=== PATIENT | female | born 1975 | race Caucasian/White ===

== ENCOUNTER → 2016-07-14 | Outpatient (CLI) | payer OTHER ==
[2016-07-14 12:55] LABS: ALBUMIN 3.8 GM/DL (3.2-5.2); ALBUMIN/GLOBULIN RATIO 0.76 (1.00-1.93); ALKALINE PHOSPHATASE 141 U/L (45-117); ALT/SGPT 28 U/L (12-78); ANION GAP 11 MEQ/L (8-16); AST/SGOT 30 U/L (15-37); BILIRUBIN,TOTAL 0.4 MG/DL (0.2-1.0); BLOOD UREA NITROGEN 11 MG/DL (7-18); CALCIUM LEVEL 9.6 MG/DL (8.5-10.1); CARBON DIOXIDE LEVEL 23 MEQ/L (21-32); CHLORIDE LEVEL 104 MEQ/L (98-107); CHOLESTEROL LEVEL 296 MG/DL (<200); CREATININE FOR GFR 0.89 MG/DL (0.55-1.02); GLOMERULAR FILTRATION RATE > 60.0 (>60); GLUCOSE, FASTING 81 MG/DL (70-105); POTASSIUM SERUM 4.4 MEQ/L (3.5-5.1); SODIUM LEVEL 138 MEQ/L (136-145); THYROXINE (T4) 12.2 UG/DL (4.5-12.0); TOTAL PROTEIN 8.8 GM/DL (6.4-8.2); TRIGLYCERIDES LEVEL 373 MG/DL (<150)
== END ==
LOC: M LAB 11:34
PROVIDERS: ATTEND Physician Assistant Medical
DX: E78.2 Mixed hyperlipidemia (principal)

== ENCOUNTER → 2016-09-06 | Outpatient (CLI) | payer OTHER ==
[2016-09-06 09:59] LABS: ALBUMIN 3.2 GM/DL (3.2-5.2); ALBUMIN/GLOBULIN RATIO 0.68 (1.00-1.93); ALKALINE PHOSPHATASE 181 U/L (45-117); ALT/SGPT 34 U/L (12-78); ANION GAP 10 MEQ/L (8-16); AST/SGOT 28 U/L (15-37); BILIRUBIN,TOTAL 0.2 MG/DL (0.2-1.0); BLOOD UREA NITROGEN 14 MG/DL (7-18); CALCIUM LEVEL 8.3 MG/DL (8.5-10.1); CARBON DIOXIDE LEVEL 26 MEQ/L (21-32); CHLORIDE LEVEL 104 MEQ/L (98-107); CHOLESTEROL LEVEL 157 MG/DL (<200); CREATININE FOR GFR 0.84 MG/DL (0.55-1.02); GLOMERULAR FILTRATION RATE > 60.0 (>58); GLUCOSE, FASTING 72 MG/DL (70-105); POTASSIUM SERUM 4.2 MEQ/L (3.5-5.1); SODIUM LEVEL 140 MEQ/L (136-145); TOTAL PROTEIN 7.9 GM/DL (6.4-8.2); TRIGLYCERIDES LEVEL 144 MG/DL (<150)
== END ==
LOC: M LAB 08:28
PROVIDERS: ATTEND Physician Assistant Medical
DX: E78.2 Mixed hyperlipidemia (principal); E03.9 Hypothyroidism, unspecified

== ENCOUNTER → 2016-10-07 | Outpatient (CLI) | payer OTHER ==
[~2016-10-07] MED LIST: ATOR40TA PO; LEVO125T3 PO; LISI-538 PO
--- NOTE | 2016-10-07 15:24 | ECGEPIP ---
Stationary ECG Study [facility] Test Date: 2016-10-07 Pat Name: ABRAHAM CADE Department: Room: - Gender: F Relocation Manager: CHERYL : 1975 Requested By: Eugene Frost Order Number: [id number] Reading MD: Manpreet Galan Measurements Intervals [place] Rate: 77 P: 55 CO: 153 QRS: 32 QRSD: 80 T: 71 QT: 371 QTc: 420 Interpretive Statements SINUS RHYTHM NONSPECIFIC ST & T-WAVE ABNORMALITY No prior ECG available for comparison at the time of interpretation. Electronically Signed On 10-07-2016 15:24:02 EDT by Manpreet Galan
== END ==
LOC: M EKG 08:17
PROVIDERS: ATTEND Anesthesiology
DX: Z01.818 Encounter for other preprocedural examination (principal)

== ENCOUNTER → 2016-10-11 | Outpatient (REF) | payer OTHER | LOC: M LAB REF 13:55 | PROVIDERS: ATTEND Obstetrics & Gynecology | DX: Z11.51 Encounter for screening for human papillomavirus (HPV) (principal) ==

== ENCOUNTER → 2016-10-25 | Outpatient (CLI) | payer OTHER ==
--- NOTE | 2016-10-25 10:19 | REPMRS ---
Patient History The patient states she has not had a clinical breast exam in over a year. Patient is nulliparous. Family history of endometrial cancer in mother at age 65, colorectal cancer in paternal aunt at age 50 or over, breast cancer in paternal cousin, and colorectal cancer in paternal uncle at age 50 or over. Taking unspecified hormones for 6 months. Digital Mammo Screening Bilat: October 25, 2016 - Exam #: [id number] Bilateral CC and MLO view(s) were taken. Technologist: Agustín Nunezologist FINDINGS: There are scattered fibroglandular densities. There is no evidence of cancer on this mammogram. ASSESSMENT: BI-RADS/ACR category 2 mammogram. Benign finding(s). Recommendation Routine screening mammogram of both breasts in 1 year (for women over age 40). This mammogram was interpreted with the aid of an FDA-approved computer-aided dectection system. Electronically Signed By: Christophe Mcfadden MD 10/25/16 [id number]
== END ==
LOC: M RAD 09:38
PROVIDERS: ATTEND Obstetrics & Gynecology
DX: Z12.31 Encounter for screening mammogram for malignant neoplasm of breast (principal)

== ENCOUNTER → 2016-12-06 | Outpatient (CLI) | payer OTHER ==
[2016-12-06 10:40] LABS: ALBUMIN 3.3 GM/DL (3.2-5.2); ALBUMIN/GLOBULIN RATIO 0.75 (1.00-1.93); ALKALINE PHOSPHATASE 118 U/L (45-117); ALT/SGPT 39 U/L (12-78); ANION GAP 6 MEQ/L (8-16); AST/SGOT 34 U/L (15-37); BILIRUBIN,TOTAL 0.3 MG/DL (0.2-1.0); BLOOD UREA NITROGEN 12 MG/DL (7-18); CALCIUM LEVEL 8.9 MG/DL (8.5-10.1); CARBON DIOXIDE LEVEL 25 MEQ/L (21-32); CHLORIDE LEVEL 109 MEQ/L (98-107); CHOLESTEROL LEVEL 220 MG/DL (<200); CREATININE FOR GFR 0.88 MG/DL (0.55-1.02); GLOMERULAR FILTRATION RATE > 60.0 (>58); GLUCOSE, FASTING 83 MG/DL (70-105); POTASSIUM SERUM 4.9 MEQ/L (3.5-5.1); SODIUM LEVEL 140 MEQ/L (136-145); TOTAL PROTEIN 7.7 GM/DL (6.4-8.2); TRIGLYCERIDES LEVEL 223 MG/DL (<150)
== END ==
LOC: M LAB 08:53
PROVIDERS: ATTEND Physician Assistant Medical
DX: E78.2 Mixed hyperlipidemia (principal); E03.9 Hypothyroidism, unspecified

== ENCOUNTER 2016-12-23 17:06 | Emergency (ER) | payer OTHER ==
[~2016-12-23] VITALS: Ht 165.1 cm; Wt 100.0 kg
[~2016-12-23 17:06] MED LIST changes: -ATOR40TA PO; +ATOR40TA75 PO; -LEVO125T3 PO; +LEVO125T4 PO
[2016-12-23 17:07] VITALS: BP 137/83
[2016-12-23] MEDS ORDERED: ADVI200T PO (17:16)
[2016-12-23] MEDS ORDERED: ANUS25SU PR (17:36)
[2016-12-23] MEDS ORDERED: NORCO, ANEXSIA 5/325MG TABLET (HYDROcodone/ACETAMINOPHEN) PO ONE (17:45)
== END 2016-12-23 17:41 | disposition home or self-care (01) ==
LOC: M ED 17:37
DX: K64.5 Perianal venous thrombosis (principal); R11.0 Nausea; K50.919 Crohn's disease, unspecified, with unspecified complications; I10 Essential (primary) hypertension; E78.00 Pure hypercholesterolemia, unspecified; D64.9 Anemia, unspecified; F41.9 Anxiety disorder, unspecified; F17.200 Nicotine dependence, unspecified, uncomplicated; Z90.49 Acquired absence of other specified parts of digestive tract; Z79.899 Other long term (current) drug therapy

== ENCOUNTER → 2017-01-07 | Day surgery (SDC) | payer OTHER ==
[~2017-01-07] VITALS: Ht 165.1 cm; Wt 99.8 kg
[~2017-01-07] MED LIST changes: +ADVI200T PO; +ANUS25SU PR; +HYDROmorphone HCL 1 MG/ML SYRINGE (J1170) IV PRN; +KETOROLAC 60 MG/2 ML VIAL (J1885) As Ordered ONE; +LIDOCAINE 1% SDV INJ 30 ML VIAL As Ordered ONE; +LIDOCAINE 2% INJ 100 MG/5 ML SDV (FOR ANES.) As Ordered ONE; +LR 1,000 ML IV SCH; +MIDAZOLAM INJ 2 MG/2 ML VIAL (J2250) As Ordered ONE; +ONDANSETRON 4MG/2ML VIAL (J2405) As Ordered ONE; +ONDANSETRON 4MG/2ML VIAL (J2405) IV PRN; +PERCOCET 5MG/325MG TAB PO PRN; +PROPOFOL 200 MG/20 ML VIAL As Ordered ONE; +SILVER NITRATE APPLICATOR As Ordered ONE; +dexameTHASONE 4 MG/ML 1ML VIAL (J1100) As Ordered ONE; +ePHEDrine SULFATE 25 MG/5 ML(5MG/ML) SYRINGE As Ordered ONE; +fentaNYL 100 MCG/2 ML INJECTION (J3010) As Ordered ONE; +fentaNYL 100 MCG/2 ML INJECTION (J3010) IV PRN
[2017-01-07 06:40] LABS: MEAN CORPUSCULAR HEMOGLOBIN 28.2 pg (27.0-33.0); MEAN CORPUSCULAR HGB CONC 33.3 g/dl (32.0-36.5); MEAN CORPUSCULAR VOLUME 84.5 fl (80.0-96.0); RED CELL DISTRIBUTION WIDTH 13.2 % (11.5-14.5); WHITE BLOOD COUNT 7.1 K/mm3 (4.0-10.0)
[2017-01-07 07:21] LABS: CONTROL LINE HCG INT CTR LINE PRESENT
[2017-01-07 10:25] VITALS: BP 131/76
--- NOTE | 2017-01-08 12:04 | RO ---
DATE OF PROCEDURE: 01/07/2017 PREOPERATIVE DIAGNOSES: 1. Abnormal uterine bleeding. 2. Possible fistulous tract to the vagina, cervix, and uterus. POSTOPERATIVE DIAGNOSES: 1. Abnormal uterine bleeding. 2. Possible fistulous tract to the vagina, cervix, and uterus. 3. Favor [id number] over fistulous tract to vagina, cervix, or uterus. 4. External hemorrhoid, thrombosed. PROCEDURES PERFORMED: 1. Examination under anesthesia. 2. Diagnostic hysteroscopy and dilation and curettage. 3. Insertion of Mirena intrauterine device (IUD). SURGEON: Jayy Andre DO MACHINE BRUSH MAKER: KERON Lawson-JACKIE ANESTHESIA TYPE: General via laryngeal mask airway (LMA) anesthesia. SPECIMEN SENT TO PATHOLOGY: Endometrial curettings. ESTIMATED BLOOD LOSS: Less than 10 mL. FLUIDS REPLACED: 1 liter of lactated Ringer. DRAINS: In-and-out catheter 50 mL urine output. COMPLICATIONS: None. PREOPERATIVE ANTIBIOTICS: None indicated. INTRAOPERATIVE FINDINGS: Examination under anesthesia revealed no evidence of a fistulous tract to the vagina, uterus, or cervix. Hysteroscopic findings: No evidence of fistulous tracts within the cervix or the uterus. The hysteroscopic examination revealed a normal intrauterine cavity. Bilateral ostia visualized with no intracavitary mass. No indentation of the contour of the inside of the endometrial cavity that would be suggestive of a fistulous tract within either the endometrial cavity or the endocervical cavity. ADDITIONAL FINDINGS: Right buttock pinpoint opening with mucoid drainage. No blood drainage. There was a thrombosed hemorrhoid at 7 o'clock. INDICATION: The patient is a 41-year-old with a longstanding history of abnormal uterine bleeding and a fistulous tract that drains from her right buttocks. The patient had endorsed bleeding from this area, and typically she notes this bleeding at the time of her menses. However, no fistulous tract has been able to be delineated. DESCRIPTION OF PROCEDURE: The patient was counseled and consented on the risks, benefits, indications, and alternatives if the procedure. Informed consent was obtained. She was taken to the operating room with an intravenous (IV) running and placed on the operating table in the dorsal supine position. General anesthesia was administered and the airway secured without any difficulty. She was placed in the low lithotomy position. She was prepared and draped in normal sterile fashion. Time-out was performed per protocol. The bladder was drained with a sterile in-and-out catheter. A sterile speculum was placed with good visualization of the cervix. A single-tooth tenaculum was used to grasp the anterior lip of the cervix, and downward traction was applied. The cervix was noted to be stenotic and difficult to access with just the smallest Rodri dilator. Therefore, a lacrimal duct probe was used to delineate the pinpoint stenotic cervical os. This was done successfully. Entry into the intrauterine cavity was achieved with the lacrimal duct probe. This lacrimal duct probe was removed. A small slit within the cervical os was created with the #11 blade to accommodate the Rodri dilator. The Rodri dilator was placed transcervically into the intrauterine cavity, and then the cervix was then sequentially dilated with Rodri dilators up to a #17. A light curettage was performed throughout the entire intrauterine cavity. A small amount of tissue was removed. The hysteroscope was placed transcervically into the intrauterine cavity with the findings noted above. Given lack of any significant findings within the endometrial cavity or the endocervical canal, in particular no evidence of a fistulous tract, the decision was made to conclude the diagnostic hysteroscopy. The hysteroscope was removed. The uterus was sounded to 7 cm. The uterus was allowed to drain all of the hysteroscopic normal saline fluid. The Mirena IUD was placed under finish molder guidelines. The IUD strings were cut approximately 2 cm from the external os. Minimal bleeding from the uterus/cervical os was noted. The single-tooth tenaculum was removed. The tenaculum sites were cauterized with silver nitrate. An additional examination of the vaginal mucosa revealed no evidence of the fistulous tract. The drainage that was elicited from the right buttocks opening was only mucoid in nature, and no watery fluid or blood was noted from this fistulous tract, thus providing more evidence that there is not a fistulous tract communicating to the vagina or the cervix or uterus, by my best effort and examination. Sponge, lap, needle, and instrument counts were correct. The patient tolerated the entire procedure very well. She was transferred to the postanesthesia care unit (PACU) in good and stable condition. [facility]
== END | disposition home or self-care (01) ==
LOC: M SDC 06:06
PROVIDERS: ATTEND Obstetrics & Gynecology
DX: N93.9 Abnormal uterine and vaginal bleeding, unspecified (principal); K64.9 Unspecified hemorrhoids; E03.9 Hypothyroidism, unspecified; I10 Essential (primary) hypertension; K50.90 Crohn's disease, unspecified, without complications; E78.00 Pure hypercholesterolemia, unspecified; R29.898 Other symptoms and signs involving the musculoskeletal system; Z88.8 Allergy status to other drugs, medicaments and biological substances; Z79.899 Other long term (current) drug therapy; Z86.2 Personal history of diseases of the blood and blood-forming organs and certain disorders involving the immune mechanism; Z90.49 Acquired absence of other specified parts of digestive tract

== ENCOUNTER → 2017-03-07 | Outpatient (CLI) | payer OTHER ==
[~2017-03-07] MED LIST changes: -HYDROmorphone HCL 1 MG/ML SYRINGE (J1170) IV PRN; -KETOROLAC 60 MG/2 ML VIAL (J1885) As Ordered ONE; -LIDOCAINE 1% SDV INJ 30 ML VIAL As Ordered ONE; -LIDOCAINE 2% INJ 100 MG/5 ML SDV (FOR ANES.) As Ordered ONE; -LR 1,000 ML IV SCH; -MIDAZOLAM INJ 2 MG/2 ML VIAL (J2250) As Ordered ONE; -ONDANSETRON 4MG/2ML VIAL (J2405) As Ordered ONE; -ONDANSETRON 4MG/2ML VIAL (J2405) IV PRN; -PERCOCET 5MG/325MG TAB PO PRN; -PROPOFOL 200 MG/20 ML VIAL As Ordered ONE; -SILVER NITRATE APPLICATOR As Ordered ONE; -dexameTHASONE 4 MG/ML 1ML VIAL (J1100) As Ordered ONE; -ePHEDrine SULFATE 25 MG/5 ML(5MG/ML) SYRINGE As Ordered ONE; -fentaNYL 100 MCG/2 ML INJECTION (J3010) As Ordered ONE; -fentaNYL 100 MCG/2 ML INJECTION (J3010) IV PRN
[2017-03-07 08:54] LABS: ALBUMIN/GLOBULIN RATIO 0.61 (1.00-1.93); ALKALINE PHOSPHATASE 95 U/L (45-117); ALT/SGPT 21 U/L (12-78); ANION GAP 24 MEQ/L (8-16); AST/SGOT 19 U/L (15-37); BILIRUBIN,TOTAL 0.3 MG/DL (0.2-1.0); BLOOD UREA NITROGEN 13 MG/DL (7-18); CALCIUM LEVEL 8.6 MG/DL (8.5-10.1); CARBON DIOXIDE LEVEL 2 MEQ/L (21-32); CHLORIDE LEVEL 110 MEQ/L (98-107); CHOLESTEROL LEVEL 185 MG/DL (<200); CREATININE FOR GFR 0.76 MG/DL (0.55-1.02); GLOMERULAR FILTRATION RATE > 60.0 (>58); GLUCOSE, FASTING 86 MG/DL (70-105); POTASSIUM SERUM 4.7 MEQ/L (3.5-5.1); SODIUM LEVEL 136 MEQ/L (136-145); TOTAL PROTEIN 7.9 GM/DL (6.4-8.2); TRIGLYCERIDES LEVEL 58 MG/DL (<150)
== END ==
LOC: M LAB 06:15
PROVIDERS: ATTEND Physician Assistant Medical
DX: E78.2 Mixed hyperlipidemia (principal)

== ENCOUNTER → 2017-03-16 | Outpatient (CLI) | payer OTHER ==
[2017-03-16 07:21] LABS: BASO % 0.5 % (0.0-1.0); EOS # 0.4 K/mm3 (0.0-0.50); EOS % 5.9 % (0.0-3.0); LYMPH # 1.9 K/mm3 (1.5-4.5); LYMPH % 23.5 % (24.0-44.0); MEAN CORPUSCULAR HEMOGLOBIN 27.6 pg (27.0-33.0); MEAN CORPUSCULAR HGB CONC 31.4 g/dl (32.0-36.5); MEAN CORPUSCULAR VOLUME 87.7 fl (80.0-96.0); MONO # 0.3 K/mm3 (0.0-0.8); MONO % 4.5 % (0.0-5.0); NEUTROPHILS # 4.7 K/mm3 (1.8-7.7); NEUTROPHILS % 63.6 % (36.0-66.0); RED CELL DISTRIBUTION WIDTH 13.4 % (11.5-14.5); WHITE BLOOD COUNT 7.4 K/mm3 (4.0-10.0)
== END ==
LOC: M LAB 06:36
PROVIDERS: ATTEND Physician Assistant Medical
DX: R42 Dizziness and giddiness (principal)

== ENCOUNTER → 2017-05-16 | Outpatient (CLI) | payer OTHER ==
[2017-05-16 06:56] LABS: BASO # 0.1 10^3/uL (0.0-0.2); BASO % 0.5 % (0.0-1.0); EOS # 0.3 10^3/uL (0.0-0.50); EOS % 3.1 % (0.0-3.0); IMMATURE GRANULOCYTE % 0.5 % (0-0); LYMPH # 2.1 10^3/uL (1.5-4.5); LYMPH % 19.9 % (24.0-44.0); MEAN CORPUSCULAR HEMOGLOBIN 27.5 pg (27.0-33.0); MEAN CORPUSCULAR HGB CONC 32.3 g/dl (32.0-36.5); MEAN CORPUSCULAR VOLUME 85.1 fl (80.0-96.0); MONO # 0.7 10^3/uL (0.0-0.8); MONO % 6.8 % (0.0-5.0); NEUTROPHILS # 7.5 10^3/uL (1.8-7.7); NEUTROPHILS % 69.2 % (36.0-66.0); PLATELET COUNT, AUTOMATED 341 10^3/uL (150-450); RED CELL DISTRIBUTION WIDTH 13.5 % (11.5-14.5); WHITE BLOOD COUNT 10.8 10^3/uL (4.0-10.0)
[2017-05-16 07:32] LABS: ALBUMIN 3.1 GM/DL (3.2-5.2); ALBUMIN/GLOBULIN RATIO 0.74 (1.00-1.93); ALKALINE PHOSPHATASE 103 U/L (45-117); ALT/SGPT 22 U/L (12-78); ANION GAP 9 MEQ/L (8-16); AST/SGOT 18 U/L (7-37); BILIRUBIN,TOTAL 0.3 MG/DL (0.2-1.0); BLOOD UREA NITROGEN 14 MG/DL (7-18); CALCIUM LEVEL 8.8 MG/DL (8.5-10.1); CARBON DIOXIDE LEVEL 24 MEQ/L (21-32); CHLORIDE LEVEL 106 MEQ/L (98-107); CHOLESTEROL LEVEL 237 MG/DL (<200); CREATININE FOR GFR 0.98 MG/DL (0.55-1.02); FERRITIN 18 NG/ML (8-252); GLOMERULAR FILTRATION RATE > 60.0 (>58); GLUCOSE, FASTING 73 MG/DL (70-105); POTASSIUM SERUM 3.8 MEQ/L (3.5-5.1); SODIUM LEVEL 139 MEQ/L (136-145); T UPTAKE 33 % (30-39); THYROXINE (T4) 10.4 UG/DL (4.5-12.0); TOTAL PROTEIN 7.3 GM/DL (6.4-8.2); TRIGLYCERIDES LEVEL 163 MG/DL (<150)
== END ==
LOC: M LAB 06:18
PROVIDERS: ATTEND Physician Assistant Medical
DX: E03.9 Hypothyroidism, unspecified (principal); E55.9 Vitamin D deficiency, unspecified; D64.9 Anemia, unspecified; E78.2 Mixed hyperlipidemia

== ENCOUNTER → 2017-05-16 | Outpatient (CLI) | payer OTHER | LOC: M LAB 06:15 | PROVIDERS: ATTEND Internal Medicine Gastroenterology | DX: K51.20 Ulcerative (chronic) proctitis without complications (principal); K64.0 First degree hemorrhoids ==

== ENCOUNTER → 2017-06-10 | Outpatient (CLI) | payer OTHER ==
--- NOTE | 2017-06-14 09:21 | SLEEPHOME ---
DATE OF STUDY: 06/10/2017 ORDERING PROVIDER: Ashley Jimenze NP Diagnostic home sleep testing was performed due to concern for the obstructive sleep apnea syndrome in this patient with a history of excessive somnolence and hypertension and comorbidities of hypothyroidism. 10 hours and 59 minutes of data were reviewed. There were 10 hour and 22 minutes marked as time in bed. During the interval marked time in bed, there were 37 respiratory events identified of 10 seconds in duration or greater for a respiratory event index of 3.6. The events were primarily obstructive and exclusively seen in the supine posture. Baseline pulse rate 70 beats per minute. Pulse rate ranged 60-108. Baseline saturation 95%. The lowest oxygen saturation recorded was 77%. Testing was performed primarily in the supine posture. Nonsupine data was reviewed, as well. IMPRESSION: Borderline diagnostic home sleep testing with repetitive respiratory events and oxygen desaturations into the 70s with an apnea-hypopnea index of 3.6. RECOMMENDATION: As the events were exclusive to the supine position, sleep position retraining for avoidance of the supine posture is recommended. If the patient's symptoms persist, retesting ideally in an inpatient setting would be more sensitive to identify mild obstructive sleep apnea syndrome.
== END ==
LOC: M SLEEP 13:09
PROVIDERS: ATTEND Nurse Practitioner Adult Health
DX: G47.30 Sleep apnea, unspecified (principal)

== ENCOUNTER → 2017-07-04 | Outpatient (CLI) | payer OTHER ==
[2017-07-04 12:32] LABS: BASO % 0.6 % (0.0-1.0); EOS # 0.3 10^3/uL (0.0-0.50); EOS % 4.2 % (0.0-3.0); HEMATOCRIT 37.2 % (36.0-47.0); HEMOGLOBIN 12.2 g/dl (12.0-16.0); IMMATURE GRANULOCYTE % 0.3 % (0-0); LYMPH # 1.5 10^3/uL (1.5-4.5); LYMPH % 23.1 % (24.0-44.0); MEAN CORPUSCULAR HEMOGLOBIN 26.5 pg (27.0-33.0); MEAN CORPUSCULAR HGB CONC 32.8 g/dl (32.0-36.5); MEAN CORPUSCULAR VOLUME 80.9 fl (80.0-96.0); MONO # 0.4 10^3/uL (0.0-0.8); MONO % 5.9 % (0.0-5.0); NEUTROPHILS # 4.3 10^3/uL (1.8-7.7); NEUTROPHILS % 65.9 % (36.0-66.0); PLATELET COUNT, AUTOMATED 342 10^3/uL (150-450); RED CELL DISTRIBUTION WIDTH 13.4 % (11.5-14.5); WHITE BLOOD COUNT 6.5 10^3/uL (4.0-10.0)
[2017-07-04 13:04] LABS: TOTAL 25(OH) VITAMIN D 27.3 NG/ML (30.0-100.0)
[2017-07-04 13:05] LABS: ALBUMIN 3.3 GM/DL (3.2-5.2); ALBUMIN/GLOBULIN RATIO 0.75 (1.00-1.93); ALKALINE PHOSPHATASE 108 U/L (45-117); ALT/SGPT 21 U/L (12-78); ANION GAP 10 MEQ/L (8-16); AST/SGOT 22 U/L (7-37); BILIRUBIN,TOTAL 0.4 MG/DL (0.2-1.0); BLOOD UREA NITROGEN 15 MG/DL (7-18); CALCIUM LEVEL 8.3 MG/DL (8.5-10.1); CARBON DIOXIDE LEVEL 23 MEQ/L (21-32); CHLORIDE LEVEL 107 MEQ/L (98-107); CHOLESTEROL LEVEL 232 MG/DL (<200); CHOLESTEROL RISK RATIO 5.155 (<5); CREATININE FOR GFR 0.85 MG/DL (0.55-1.02); FREE THYROXINE INDEX 2.7 % (1.3-4.8); GLOMERULAR FILTRATION RATE > 60.0 (>58); GLUCOSE, FASTING 86 MG/DL (70-105); HDL CHOLESTEROL 45 MG/DL (>40); LDL CHOLESTEROL 145.8 MG/DL (<100); NON-HDL-C 187 MG/DL; POTASSIUM SERUM 4.3 MEQ/L (3.5-5.1); SODIUM LEVEL 140 MEQ/L (136-145); T UPTAKE 30 % (30-39); TOTAL PROTEIN 7.7 GM/DL (6.4-8.2); TRIGLYCERIDES LEVEL 206 MG/DL (<150)
== END ==
LOC: M LAB 11:51
DX: E78.2 Mixed hyperlipidemia (principal); E55.9 Vitamin D deficiency, unspecified; E03.9 Hypothyroidism, unspecified
CPT/HCPCS: 84443

== ENCOUNTER → 2017-08-16 | Outpatient (CLI) | payer OTHER ==
[2017-08-16 11:45] LABS: BASO % 0.4 % (0.0-1.0); EOS # 0.3 10^3/uL (0.0-0.50); EOS % 3.6 % (0.0-3.0); HEMATOCRIT 39.6 % (36.0-47.0); HEMOGLOBIN 12.8 g/dl (12.0-16.0); IMMATURE GRANULOCYTE % 0.4 % (0-3.0); LYMPH # 2.3 10^3/uL (1.5-4.5); LYMPH % 25.1 % (24.0-44.0); MEAN CORPUSCULAR HEMOGLOBIN 26.2 pg (27.0-33.0); MEAN CORPUSCULAR HGB CONC 32.3 g/dl (32.0-36.5); MEAN CORPUSCULAR VOLUME 81.1 fl (80.0-96.0); MONO # 0.6 10^3/uL (0.0-0.8); MONO % 6.3 % (0.0-5.0); NEUTROPHILS # 5.8 10^3/uL (1.8-7.7); NEUTROPHILS % 64.2 % (36.0-66.0); PLATELET COUNT, AUTOMATED 417 10^3/uL (150-450); RED BLOOD COUNT 4.88 10^6/uL (4.00-5.40); RED CELL DISTRIBUTION WIDTH 13.7 % (11.5-14.5); WHITE BLOOD COUNT 9.1 10^3/uL (4.0-10.0)
[2017-08-16 12:58] LABS: ALBUMIN 3.8 GM/DL (3.2-5.2); ALBUMIN/GLOBULIN RATIO 0.73 (1.00-1.93); ALKALINE PHOSPHATASE 199 U/L (45-117); ALT/SGPT 36 U/L (12-78); ANION GAP 12 MEQ/L (8-16); AST/SGOT 27 U/L (7-37); BILIRUBIN,TOTAL 0.5 MG/DL (0.2-1.0); BLOOD UREA NITROGEN 12 MG/DL (7-18); CALCIUM LEVEL 9.9 MG/DL (8.5-10.1); CARBON DIOXIDE LEVEL 22 MEQ/L (21-32); CHLORIDE LEVEL 104 MEQ/L (98-107); CHOLESTEROL LEVEL 148 MG/DL (<200); CHOLESTEROL RISK RATIO 3.217 (<5); GLOMERULAR FILTRATION RATE > 60.0 (>58); GLUCOSE, FASTING 82 MG/DL (70-100); HDL CHOLESTEROL 46 MG/DL (>40); NON-HDL-C 102 MG/DL; POTASSIUM SERUM 4.5 MEQ/L (3.5-5.1); SODIUM LEVEL 138 MEQ/L (136-145); T UPTAKE 28 % (30-39); THYROXINE (T4) 15.5 UG/DL (4.5-12.0); TRIGLYCERIDES LEVEL 165 MG/DL (<150)
[2017-08-16 13:03] LABS: TOTAL 25(OH) VITAMIN D 23.7 NG/ML (30.0-100.0)
== END ==
LOC: M LAB 11:14
DX: E78.2 Mixed hyperlipidemia (principal)
CPT/HCPCS: 84443

== ENCOUNTER 2017-08-27 15:00 | Emergency (ER) | payer OTHER ==
[2017-08-27] MEDS: AUGMENTIN 875 MG TAB PO (16:42)
[2017-08-27] MEDS: LIDOCAINE 2% W/EPIN INJ 20ML **PRES FREE INJ (16:42)
[2017-08-27] MEDS: ADACEL/BOOSTRIX VACCINE (DIPHTH/PERTUSS/ACELL/TETANUS)0.5ML SYR (90715) IM (16:44)
== END 2017-08-27 17:16 | disposition home or self-care (01) ==
LOC: M ED 15:00
DX: S51.812A Laceration without foreign body of left forearm, initial encounter (principal); S40.022A Contusion of left upper arm, initial encounter; W54.0XXA Bitten by dog, initial encounter; Y92.018 Other place in single-family (private) house as the place of occurrence of the external cause; I10 Essential (primary) hypertension; K50.90 Crohn's disease, unspecified, without complications; E07.9 Disorder of thyroid, unspecified; E78.9 Disorder of lipoprotein metabolism, unspecified; Z79.899 Other long term (current) drug therapy; Z79.890 Hormone replacement therapy; Z88.8 Allergy status to other drugs, medicaments and biological substances; Z87.891 Personal history of nicotine dependence
CPT/HCPCS: 90715

== ENCOUNTER 2017-12-02 18:54 | Emergency (ER) | payer OTHER ==
[2017-12-02] MEDS ORDERED: NS 1,000 ML IV (19:45)
[2017-12-02 21:16] LABS: BASO # 0.1 10^3/uL (0.0-0.2); BASO % 0.5 % (0.0-1.0); EOS # 0.3 10^3/uL (0.0-0.50); EOS % 2.7 % (0.0-3.0); HEMOGLOBIN 13.1 g/dl (12.0-15.5); IMMATURE GRANULOCYTE % 0.4 % (0-3.0); LYMPH # 2.5 10^3/uL (1.5-4.5); LYMPH % 20.4 % (24.0-44.0); MEAN CORPUSCULAR HEMOGLOBIN 28.7 pg (27.0-33.0); MEAN CORPUSCULAR HGB CONC 33.6 g/dl (32.0-36.5); MEAN CORPUSCULAR VOLUME 85.5 fl (80.0-96.0); MONO # 0.7 10^3/uL (0.0-0.8); MONO % 5.8 % (0.0-5.0); NEUTROPHILS # 8.5 10^3/uL (1.8-7.7); NEUTROPHILS % 70.2 % (36.0-66.0); PLATELET COUNT, AUTOMATED 345 10^3/uL (150-450); RED BLOOD COUNT 4.56 10^6/uL (4.00-5.40); RED CELL DISTRIBUTION WIDTH 14.3 % (11.5-14.5); WHITE BLOOD COUNT 12.1 10^3/uL (4.0-10.0)
[2017-12-02 21:41] LABS: ALBUMIN 3.3 GM/DL (3.2-5.2); ALBUMIN/GLOBULIN RATIO 0.77 (1.00-1.93); ALKALINE PHOSPHATASE 125 U/L (45-117); ANION GAP 6 MEQ/L (8-16); AST/SGOT 17 U/L (7-37); BILIRUBIN,DIRECT < 0.1 MG/DL (0.0-0.2); BILIRUBIN,TOTAL 0.3 MG/DL (0.2-1.0); BLOOD UREA NITROGEN 11 MG/DL (7-18); C REACTIVE PROTEIN QUANTITATIV 1.48 MG/DL (0.00-0.30); CALCIUM LEVEL 8.5 MG/DL (8.5-10.1); CARBON DIOXIDE LEVEL 25 MEQ/L (21-32); CHLORIDE LEVEL 110 MEQ/L (98-107); CPK CREATINE PHOSPHOKINASE 43 U/L (26-192); CREATININE FOR GFR 0.85 MG/DL (0.55-1.30); FREE T4 0.93 NG/DL (0.76-1.46); GLOMERULAR FILTRATION RATE > 60.0 (>58); GLUCOSE, FASTING 82 MG/DL (70-100); POTASSIUM SERUM 4.5 MEQ/L (3.5-5.1); SODIUM LEVEL 141 MEQ/L (136-145); TOTAL PROTEIN 7.6 GM/DL (6.4-8.2); TROPONIN I < 0.02 NG/ML (< 0.10)
[2017-12-02 21:46] LABS: ALT/SGPT 27 U/L (12-78); CK-MB VALUE MASS < 1.0 NG/ML (<3.6); MB/CK RELATIVE INDEX 2.32 (< OR =4); NT-PRO BNP 108 PG/ML (<125)
[2017-12-02 22:11] LABS: INR 0.97
[2017-12-02 22:12] LABS: PARTIAL THROMBOPLASTIN TIME 28.2 SECONDS (26.8-37.9)
[2017-12-06 11:17] LABS: BEDSIDE GLUCOSE 97 MG/DL (70-105)
== END 2017-12-02 22:33 | disposition home or self-care (01) ==
LOC: M ED 18:54
DX: R42 Dizziness and giddiness (principal); M79.89 Other specified soft tissue disorders; E07.9 Disorder of thyroid, unspecified; I10 Essential (primary) hypertension; E78.9 Disorder of lipoprotein metabolism, unspecified; D64.9 Anemia, unspecified; K50.90 Crohn's disease, unspecified, without complications; Z88.8 Allergy status to other drugs, medicaments and biological substances; Z79.899 Other long term (current) drug therapy
CPT/HCPCS: 93970

== ENCOUNTER → 2018-01-30 | Outpatient (REF) | payer OTHER ==
[2018-02-01 14:17] LABS: HPV HYBRID CAPTURE II Negative (Negative)
== END ==
LOC: M LAB REF 13:17
DX: Z12.4 Encounter for screening for malignant neoplasm of cervix (principal)

== ENCOUNTER → 2018-02-08 | Outpatient (CLI) | payer OTHER ==
[2018-02-09 14:17] LABS: ANTINUCLEAR ANTIBODIES DIRECT Negative (Negative)
== END ==
LOC: M LAB 06:02
DX: K50.113 Crohn's disease of large intestine with fistula (principal)
CPT/HCPCS: 36415

== ENCOUNTER → 2018-03-17 | Outpatient (CLI) | payer OTHER ==
[2018-03-17 20:02] LABS: BASO % 0.4 % (0.0-1.0); EOS # 0.3 10^3/uL (0.0-0.50); EOS % 3.2 % (0.0-3.0); HEMATOCRIT 37.8 % (36.0-47.0); HEMOGLOBIN 12.5 g/dl (12.0-15.5); IMMATURE GRANULOCYTE # 0.1 10^3/uL (0-0); IMMATURE GRANULOCYTE % 0.5 % (0-3.0); LYMPH # 2.4 10^3/uL (1.5-4.5); LYMPH % 24.6 % (24.0-44.0); MEAN CORPUSCULAR HEMOGLOBIN 30.6 pg (27.0-33.0); MEAN CORPUSCULAR HGB CONC 33.1 g/dl (32.0-36.5); MEAN CORPUSCULAR VOLUME 92.4 fl (80.0-96.0); MONO # 0.5 10^3/uL (0.0-0.8); MONO % 5.1 % (0.0-5.0); NEUTROPHILS # 6.3 10^3/uL (1.8-7.7); NEUTROPHILS % 66.2 % (36.0-66.0); PLATELET COUNT, AUTOMATED 205 10^3/uL (150-450); RED BLOOD COUNT 4.09 10^6/uL (4.00-5.40); RED CELL DISTRIBUTION WIDTH 12.8 % (11.5-14.5); WHITE BLOOD COUNT 9.6 10^3/uL (4.0-10.0)
[2018-03-17 20:05] LABS: AMORPHOUS SEDIMENT SMALL (NEGATIVE); APPEARANCE, URINE HAZY (CLEAR); BACTERIA, URINE AUTO NEGATIVE (NEGATIVE); BILIRUBIN, URINE AUTO NEGATIVE (NEGATIVE); BLOOD, URINE BLOOD NEGATIVE (NEGATIVE); COLOR, URINE STRAW (YELLOW); GLUCOSE, URINE (UA) AUTO NEGATIVE (NEGATIVE); KETONE, URINE AUTO NEGATIVE (NEGATIVE); LEUKOCYTE ESTERASE, URINE AUTO 1+ (NEGATIVE); NITRITE, URINE AUTO NEGATIVE (NEGATIVE); PROTEIN, URINE AUTO NEGATIVE (NEGATIVE); RBC, URINE AUTO 2 /HPF (0-3); SPECIFIC GRAVITY URINE AUTO 1.003 (1.002-1.035); SQUAMOUS EPITHELIAL CELL UR AU 4 /HPF (0-6); UROBILINOGEN, URINE AUTO 0.2 mg/dL (0.0-2.0); WBC, URINE AUTO 1 /HPF (0-3)
[2018-03-17 20:51] LABS: POS COUNT POS FLAG
[2018-03-17 20:53] LABS: ANION GAP 8 MEQ/L (8-16); BLOOD UREA NITROGEN 9 MG/DL (7-18); CALCIUM LEVEL 8.6 MG/DL (8.5-10.1); CARBON DIOXIDE LEVEL 24 MEQ/L (21-32); CHLORIDE LEVEL 103 MEQ/L (98-107); FREE T4 0.99 NG/DL (0.76-1.46); GLOMERULAR FILTRATION RATE > 60.0 (>58); GLUCOSE, FASTING 117 MG/DL (70-100); SODIUM LEVEL 135 MEQ/L (136-145); THYROID PEROXIDASE ANTIBODY 367.4 U/ML (<60.0)
== END ==
LOC: M LAB 16:24
DX: E03.9 Hypothyroidism, unspecified (principal); D64.9 Anemia, unspecified; E78.5 Hyperlipidemia, unspecified
CPT/HCPCS: 84443

== ENCOUNTER → 2018-03-24 | Outpatient (CLI) | payer OTHER ==
[2018-03-24 11:04] LABS: BASO % 0.4 % (0.0-1.0); EOS # 0.3 10^3/uL (0.0-0.50); EOS % 3.2 % (0.0-3.0); HEMOGLOBIN 13.3 g/dl (12.0-15.5); IMMATURE GRANULOCYTE % 0.4 % (0-3.0); LYMPH # 1.8 10^3/uL (1.5-4.5); LYMPH % 18.6 % (24.0-44.0); MEAN CORPUSCULAR HEMOGLOBIN 30.7 pg (27.0-33.0); MEAN CORPUSCULAR HGB CONC 34.1 g/dl (32.0-36.5); MEAN CORPUSCULAR VOLUME 90.1 fl (80.0-96.0); MONO # 0.6 10^3/uL (0.0-0.8); MONO % 5.8 % (0.0-5.0); NEUTROPHILS # 6.9 10^3/uL (1.8-7.7); NEUTROPHILS % 71.6 % (36.0-66.0); PLATELET COUNT, AUTOMATED 326 10^3/uL (150-450); RED BLOOD COUNT 4.33 10^6/uL (4.00-5.40); RED CELL DISTRIBUTION WIDTH 12.3 % (11.5-14.5); WHITE BLOOD COUNT 9.7 10^3/uL (4.0-10.0)
[2018-03-24 11:34] LABS: ERYTHROCYTE SEDIMENTATION RATE 28 mm/hr (0-20)
[2018-03-24 11:44] LABS: C REACTIVE PROTEIN QUANTITATIV 1.06 MG/DL (0.00-0.30); FREE T4 1.03 NG/DL (0.76-1.46); RHEUMATOID FACTOR QUANT < 10.0 IU/ML (<15.0)
[2018-03-25 15:36] LABS: ANTINUCLEAR ANTIBODIES DIRECT Negative (Negative)
== END ==
LOC: M LAB 10:06
DX: E06.3 Autoimmune thyroiditis (principal)
CPT/HCPCS: 84443

== ENCOUNTER → 2018-03-27 | Outpatient (CLI) | payer OTHER | LOC: M RAD 17:32 | DX: Z12.31 Encounter for screening mammogram for malignant neoplasm of breast (principal) | CPT/HCPCS: 77067 ==

== ENCOUNTER → 2018-03-30 | Outpatient (CLI) | payer OTHER | LOC: M RAD 17:31 | DX: E06.3 Autoimmune thyroiditis (principal) | CPT/HCPCS: 76536 ==

== ENCOUNTER → 2018-04-10 | Outpatient (CLI) | payer OTHER ==
[2018-04-10 16:08] LABS: BASO % 0.4 % (0.0-1.0); EOS # 0.3 10^3/uL (0.0-0.50); EOS % 3.2 % (0.0-3.0); HEMATOCRIT 39.1 % (36.0-47.0); HEMOGLOBIN 13.1 g/dl (12.0-15.5); IMMATURE GRANULOCYTE % 0.3 % (0-3.0); LYMPH % 20.6 % (24.0-44.0); MEAN CORPUSCULAR HEMOGLOBIN 30.3 pg (27.0-33.0); MEAN CORPUSCULAR HGB CONC 33.5 g/dl (32.0-36.5); MEAN CORPUSCULAR VOLUME 90.5 fl (80.0-96.0); MONO # 0.4 10^3/uL (0.0-0.8); MONO % 4.5 % (0.0-5.0); NEUTROPHILS # 6.9 10^3/uL (1.8-7.7); PLATELET COUNT, AUTOMATED 324 10^3/uL (150-450); RED BLOOD COUNT 4.32 10^6/uL (4.00-5.40); RED CELL DISTRIBUTION WIDTH 12.4 % (11.5-14.5); WHITE BLOOD COUNT 9.7 10^3/uL (4.0-10.0)
[2018-04-10 16:42] LABS: ANION GAP 9 MEQ/L (8-16); BLOOD UREA NITROGEN 12 MG/DL (7-18); CALCIUM LEVEL 8.7 MG/DL (8.5-10.1); CARBON DIOXIDE LEVEL 25 MEQ/L (21-32); CHLORIDE LEVEL 104 MEQ/L (98-107); CREATININE FOR GFR 0.86 MG/DL (0.55-1.30); FREE T4 1.19 NG/DL (0.76-1.46); GLOMERULAR FILTRATION RATE > 60.0 (>58); GLUCOSE, FASTING 131 MG/DL (70-100); POTASSIUM SERUM 4.4 MEQ/L (3.5-5.1); SODIUM LEVEL 138 MEQ/L (136-145)
== END ==
LOC: M LAB 15:04
DX: K60.2 Anal fissure, unspecified (principal); K50.113 Crohn's disease of large intestine with fistula; E06.3 Autoimmune thyroiditis
CPT/HCPCS: 84443

== ENCOUNTER → 2018-05-17 | Outpatient (CLI) | payer OTHER ==
[2018-05-17 18:13] LABS: BASO % 0.3 % (0.0-1.0); EOS # 0.4 10^3/uL (0.0-0.50); EOS % 3.5 % (0.0-3.0); HEMOGLOBIN 13.5 g/dl (12.0-15.5); IMMATURE GRANULOCYTE % 0.4 % (0-3.0); LYMPH # 2.5 10^3/uL (1.5-4.5); LYMPH % 24.4 % (24.0-44.0); MEAN CORPUSCULAR HEMOGLOBIN 30.5 pg (27.0-33.0); MEAN CORPUSCULAR HGB CONC 33.8 g/dl (32.0-36.5); MEAN CORPUSCULAR VOLUME 90.5 fl (80.0-96.0); MONO # 0.6 10^3/uL (0.0-0.8); MONO % 6.4 % (0.0-5.0); NEUTROPHILS # 6.5 10^3/uL (1.8-7.7); PLATELET COUNT, AUTOMATED 338 10^3/uL (150-450); RED BLOOD COUNT 4.42 10^6/uL (4.00-5.40)
[2018-05-17 18:29] LABS: ALBUMIN 3.7 GM/DL (3.2-5.2); ALBUMIN/GLOBULIN RATIO 0.84 (1.00-1.93); ALKALINE PHOSPHATASE 125 U/L (45-117); ALT/SGPT 31 U/L (12-78); ANION GAP 8 MEQ/L (8-16); AST/SGOT 22 U/L (7-37); BILIRUBIN,TOTAL 0.3 MG/DL (0.2-1.0); BLOOD UREA NITROGEN 13 MG/DL (7-18); C REACTIVE PROTEIN QUANTITATIV 0.62 MG/DL (0.00-0.30); CALCIUM LEVEL 9.4 MG/DL (8.5-10.1); CARBON DIOXIDE LEVEL 25 MEQ/L (21-32); CHLORIDE LEVEL 107 MEQ/L (98-107); CREATININE FOR GFR 0.82 MG/DL (0.55-1.30); GLOMERULAR FILTRATION RATE > 60.0 (>58); GLUCOSE, FASTING 72 MG/DL (70-100); POTASSIUM SERUM 4.2 MEQ/L (3.5-5.1); SODIUM LEVEL 140 MEQ/L (136-145); TOTAL PROTEIN 8.1 GM/DL (6.4-8.2)
[2018-05-17 18:38] LABS: VITAMIN B12 LEVEL 654 PG/ML (247-911)
== END ==
LOC: M LAB 17:00
DX: K50.013 Crohn's disease of small intestine with fistula (principal)
CPT/HCPCS: 82607

== ENCOUNTER → 2018-06-06 | Outpatient (CLI) | payer OTHER ==
[~2018-06-06] MED LIST changes: -ADVI200T PO; -ANUS25SU PR; -ATOR40TA75 PO; -LEVO125T4 PO; -LISI-538 PO; +PROHANCE 279.3MG/ML 15ML VIAL (A9576) As Ordered; +PROHANCE 279.3MG/ML 5ML VIAL (A9576) As Ordered
== END ==
LOC: M RAD 16:15
DX: K50.90 Crohn's disease, unspecified, without complications (principal)
CPT/HCPCS: A9576

== ENCOUNTER → 2018-08-14 | Outpatient (CLI) | payer BC ==
[~2018-08-14] MED LIST changes: +ADVI200T PO; +ANUS25SU PR; +ATOR40TA75 PO; +AUGM875T28 PO; +LEVO125T4 PO; +LISI-538 PO; -PROHANCE 279.3MG/ML 15ML VIAL (A9576) As Ordered; -PROHANCE 279.3MG/ML 5ML VIAL (A9576) As Ordered
[2018-08-14 11:37] LABS: BASO % 0.4 % (0.0-1.0); EOS # 0.2 10^3/uL (0.0-0.50); EOS % 2.4 % (0.0-3.0); HEMATOCRIT 39.5 % (36.0-47.0); HEMOGLOBIN 13.5 g/dl (12.0-15.5); LYMPH # 1.8 10^3/uL (1.5-4.5); LYMPH % 19.5 % (24.0-44.0); MEAN CORPUSCULAR HEMOGLOBIN 30.5 pg (27.0-33.0); MEAN CORPUSCULAR HGB CONC 34.2 g/dl (32.0-36.5); MEAN CORPUSCULAR VOLUME 89.2 fl (80.0-96.0); MONO # 0.5 10^3/uL (0.0-0.8); MONO % 5.8 % (0.0-5.0); NEUTROPHILS # 6.4 10^3/uL (1.8-7.7); NEUTROPHILS % 71.6 % (36.0-66.0); PLATELET COUNT, AUTOMATED 306 10^3/uL (150-450); RED BLOOD COUNT 4.43 10^6/uL (4.00-5.40)
[2018-08-14 12:10] LABS: ALBUMIN 3.5 GM/DL (3.2-5.2); ALT/SGPT 37 U/L (12-78); BILIRUBIN,TOTAL 0.6 MG/DL (0.2-1.0); BLOOD UREA NITROGEN 13 MG/DL (7-18); CALCIUM LEVEL 8.5 MG/DL (8.5-10.1); CARBON DIOXIDE LEVEL 23 MEQ/L (21-32); CHLORIDE LEVEL 105 MEQ/L (98-107); CREATININE FOR GFR 0.91 MG/DL (0.55-1.30); FREE T4 1.09 NG/DL (0.76-1.46); GLOMERULAR FILTRATION RATE > 60.0 (>58); GLUCOSE, FASTING 122 MG/DL (70-100); POTASSIUM SERUM 4.1 MEQ/L (3.5-5.1); SODIUM LEVEL 137 MEQ/L (136-145); TOTAL 25(OH) VITAMIN D 43.3 NG/ML (30.0-100.0); TOTAL PROTEIN 7.8 GM/DL (6.4-8.2)
== END ==
LOC: M LAB 10:37
PROVIDERS: ATTEND Physician Assistant
DX: K50.113 Crohn's disease of large intestine with fistula (principal); E06.3 Autoimmune thyroiditis; L21.0 Seborrhea capitis

== ENCOUNTER 2018-11-01 18:30 | Emergency (ER) | payer BC ==
[~2018-11-01] VITALS: Ht 165.1 cm; Wt 105.0 kg
[2018-11-01] MEDS ORDERED: ZOFR4TAB16 PO (18:39)
[2018-11-01] MEDS ORDERED: MIRE1IUD IU (18:41)
[2018-11-01] MEDS ORDERED: ESCI5SOL3 PO (19:24)
[2018-11-01] MEDS ORDERED: NS 1,000 ML IV ONE ×2 (20:15→21:45)
[2018-11-01] MEDS ORDERED: PANTOPRAZOLE 40MG INJ (PROTONIX) (C9113) IV ONE (20:15)
[2018-11-01] MEDS ORDERED: PROMETHAZINE INJ 25 MG/ML VIAL (J2550) IV ONE (20:15)
[2018-11-01 21:03] LABS: BASO # 0.1 10^3/uL (0.0-0.2); BASO % 0.5 % (0.0-1.0); EOS # 0.2 10^3/uL (0.0-0.50); EOS % 1.7 % (0.0-3.0); HEMATOCRIT 41.6 % (36.0-47.0); HEMOGLOBIN 14.4 g/dl (12.0-15.5); LYMPH # 1.8 10^3/uL (1.5-4.5); LYMPH % 16.2 % (24.0-44.0); MEAN CORPUSCULAR HEMOGLOBIN 30.6 pg (27.0-33.0); MEAN CORPUSCULAR HGB CONC 34.6 g/dl (32.0-36.5); MEAN CORPUSCULAR VOLUME 88.5 fl (80.0-96.0); NEUTROPHILS % 72.2 % (36.0-66.0); PLATELET COUNT, AUTOMATED 347 10^3/uL (150-450); WHITE BLOOD COUNT 11.1 10^3/uL (4.0-10.0)
[2018-11-01 21:32] LABS: ALBUMIN 3.8 GM/DL (3.2-5.2); ALT/SGPT 27 U/L (12-78); AMYLASE 55 U/L (25-115); BILIRUBIN,DIRECT 0.2 MG/DL (0.0-0.2); BILIRUBIN,TOTAL 0.6 MG/DL (0.2-1.0); BLOOD UREA NITROGEN 13 MG/DL (7-18); CALCIUM LEVEL 8.6 MG/DL (8.5-10.1); CARBON DIOXIDE LEVEL 17 MEQ/L (21-32); CHLORIDE LEVEL 110 MEQ/L (98-107); CREATININE FOR GFR 0.98 MG/DL (0.55-1.30); GLOMERULAR FILTRATION RATE > 60.0 (>58); GLUCOSE, FASTING 97 MG/DL (70-100); LIPASE 155 U/L (73-393); POTASSIUM SERUM 4.4 MEQ/L (3.5-5.1); SODIUM LEVEL 136 MEQ/L (136-145)
[2018-11-01] MEDS ORDERED: diphenhydrAMINE INJ 50MG/ML VIAL (J1200) IV STA (21:37)
[2018-11-01] MEDS ORDERED: CIPR-249 PO (23:15)
[2018-11-01 23:31] VITALS: BP 128/74
--- NOTE | 2018-11-02 01:29 | REP ---
Clinical: gastric and abdominal pain. Technique: Upright view of the chest with supine and upright views of the abdomen and pelvis. Findings: Frontal upright view of the chest demonstrates no acute cardiopulmonary process or free air below the diaphragm to suspect pneumoperitoneum. Supine and upright views of the abdomen and pelvis demonstrate nonspecific bowel gas pattern without obstruction or perforation. No organomegaly. No abnormal calcifications. Skeletal structures normal for age. Impression: Nonspecific bowel gas pattern. Electronically Signed by Rufus Miller MD 11/02/2018 01:21 A
== END 2018-11-01 23:36 | disposition home or self-care (01) ==
LOC: M ED 18:30
DX: N39.0 Urinary tract infection, site not specified (principal); I10 Essential (primary) hypertension; E78.5 Hyperlipidemia, unspecified; D64.9 Anemia, unspecified; K50.919 Crohn's disease, unspecified, with unspecified complications; E07.9 Disorder of thyroid, unspecified; Z90.49 Acquired absence of other specified parts of digestive tract; Z79.899 Other long term (current) drug therapy; Z88.8 Allergy status to other drugs, medicaments and biological substances
CPT/HCPCS: 74021; 80048; 80076; 81001; 82150; 83690; 85025; 87086; 96374; 96375; 99284; C9113; J1200

== ENCOUNTER → 2019-02-01 | Outpatient (CLI) | payer BC ==
[~2019-02-01] MED LIST changes: +CIPR-249 PO; +ESCI5SOL3 PO; +MIRE1IUD IU; +ZOFR4TAB16 PO
--- NOTE | 2019-02-01 15:57 | REP ---
Diagnostic right breast mammogram: The patient complains of a itching in the lower inner quadrant of the right breast accompanied by breast pain. She may have felt something, however, denies that there is a palpable lump today at the time of mammography. UNILATERAL RIGHT BREAST DIGITAL MAMMOGRAM WITH 3D TOMOSYNTHESIS AND DIAGNOSTIC SPOT COMPRESSION: The the patient states she had a clinical breast examination in January/2019. The Tyrer-Cuzick score is: 13.5% . Comparisons are 10/25/2016 and 03/27/2018. The breast is almost entirely fatty.. There is a small nodule like density centrally in the breast on the CC view only. Therefore, a spot compression views performed. On the spot compression views of the nodular density completely disappears, compatible superimposition artifact. There is no dominant mass, micro calcific cluster, or architectural distortion, or other focal suspicious finding. There are no additional findings on tomosynthesis. Impression: BIRADS/ACR category 1 diagnostic right breast mammogram. Negative. Recommendation: Routine l screening mammography. This mammogram was interpreted with the aid of a FDA approved computer-aided detection system. A. Negative mammogram reports should not delay biopsy if a dominant or clinically suspicious mass is present. B. Not all breast cancers are identified by mammography or tomosynthesis. C. Adenosis and dense breasts may obscure an underlying neoplasm. Patient letter M1. Electronically Signed by Christophe Cervantes MD 02/01/2019 03:48 P
== END ==
LOC: M RAD 14:41
PROVIDERS: ATTEND Obstetrics & Gynecology
DX: N63.10 Unspecified lump in the right breast, unspecified quadrant (principal)
CPT/HCPCS: 77065; G0279

== ENCOUNTER → 2019-02-20 | Outpatient (REF) | payer BC ==
[2019-02-23 14:50] LABS: HPV HYBRID CAPTURE II Negative (Negative)
== END ==
LOC: M LAB REF 16:39
PROVIDERS: ATTEND Obstetrics & Gynecology
DX: Z12.4 Encounter for screening for malignant neoplasm of cervix (principal); B37.3 Candidiasis of vulva and vagina

== ENCOUNTER → 2019-02-20 | Outpatient (CLI) | payer BC ==
[2019-02-20 14:43] LABS: BASO # 0.1 10^3/uL (0.0-0.2); BASO % 0.6 % (0.0-1.0); EOS # 0.3 10^3/uL (0.0-0.50); EOS % 3.2 % (0.0-3.0); HEMATOCRIT 39.1 % (36.0-47.0); HEMOGLOBIN 13.1 g/dl (12.0-15.5); LYMPH # 2.2 10^3/uL (1.5-4.5); LYMPH % 23.8 % (24.0-44.0); MEAN CORPUSCULAR HEMOGLOBIN 30.3 pg (27.0-33.0); MEAN CORPUSCULAR HGB CONC 33.5 g/dl (32.0-36.5); MEAN CORPUSCULAR VOLUME 90.5 fl (80.0-96.0); MONO # 0.6 10^3/uL (0.0-0.8); MONO % 6.4 % (0.0-5.0); NEUTROPHILS # 5.9 10^3/uL (1.8-7.7); NEUTROPHILS % 65.7 % (36.0-66.0); PLATELET COUNT, AUTOMATED 270 10^3/uL (150-450); RED BLOOD COUNT 4.32 10^6/uL (4.00-5.40)
[2019-02-20 15:11] LABS: ALBUMIN 3.3 GM/DL (3.2-5.2); ALT/SGPT 29 U/L (12-78); BILIRUBIN,TOTAL 0.2 MG/DL (0.2-1.0); BLOOD UREA NITROGEN 12 MG/DL (7-18); CALCIUM LEVEL 8.8 MG/DL (8.5-10.1); CARBON DIOXIDE LEVEL 26 MEQ/L (21-32); CHLORIDE LEVEL 106 MEQ/L (98-107); CREATININE FOR GFR 0.76 MG/DL (0.55-1.30); GLOMERULAR FILTRATION RATE > 60.0 (>58); GLUCOSE, FASTING 87 MG/DL (70-100); POTASSIUM SERUM 4.2 MEQ/L (3.5-5.1); SODIUM LEVEL 137 MEQ/L (136-145); TOTAL PROTEIN 7.3 GM/DL (6.4-8.2)
== END ==
LOC: M LAB 14:05
PROVIDERS: ATTEND Surgery
DX: Z01.812 Encounter for preprocedural laboratory examination (principal); K61.0 Anal abscess

== ENCOUNTER → 2019-04-11 | Outpatient (CLI) | payer BC ==
[2019-04-11 17:09] LABS: BASO # 0.1 10^3/uL (0.0-0.2); BASO % 0.6 % (0.0-1.0); EOS # 0.4 10^3/uL (0.0-0.5); EOS % 4.8 % (0.0-3.0); HEMATOCRIT 42.1 % (36.0-47.0); HEMOGLOBIN 14.1 g/dl (12.0-15.5); LYMPH # 1.5 10^3/uL (1.5-5.0); LYMPH % 17.5 % (24.0-44.0); MEAN CORPUSCULAR HEMOGLOBIN 30.5 pg (27.0-33.0); MEAN CORPUSCULAR HGB CONC 33.5 g/dl (32.0-36.5); MEAN CORPUSCULAR VOLUME 91.1 fl (80.0-96.0); MONO # 0.5 10^3/uL (0.0-0.8); MONO % 6.1 % (0.0-5.0); NEUTROPHILS # 5.9 10^3/uL (1.5-8.5); NEUTROPHILS % 70.5 % (36.0-66.0); PLATELET COUNT, AUTOMATED 269 10^3/uL (150-450); RED BLOOD COUNT 4.62 10^6/uL (4.00-5.40); WHITE BLOOD COUNT 8.4 10^3/uL (4.0-10.0)
[2019-04-11 17:29] LABS: ALBUMIN 3.6 GM/DL (3.2-5.2); ALT/SGPT 38 U/L (12-78); BILIRUBIN,TOTAL 0.5 MG/DL (0.2-1.0); BLOOD UREA NITROGEN 12 MG/DL (7-18); CALCIUM LEVEL 9.1 MG/DL (8.5-10.1); CARBON DIOXIDE LEVEL 29 MEQ/L (21-32); CHLORIDE LEVEL 104 MEQ/L (98-107); CREATININE FOR GFR 0.86 MG/DL (0.55-1.30); GLOMERULAR FILTRATION RATE > 60.0 (>58); GLUCOSE, FASTING 79 MG/DL (70-100); POTASSIUM SERUM 4.5 MEQ/L (3.5-5.1); SODIUM LEVEL 138 MEQ/L (136-145); TOTAL PROTEIN 8.4 GM/DL (6.4-8.2)
== END ==
LOC: M LAB 16:20
PROVIDERS: ATTEND Internal Medicine Gastroenterology
DX: K50.013 Crohn's disease of small intestine with fistula (principal)

== ENCOUNTER 2019-05-09 13:59 | Outpatient (CLI) | payer BC ==
[~2019-05-09] VITALS: Ht 165.1 cm; Wt 103.8 kg
[2019-05-09 14:16] VITALS: BP 140/74
[2019-05-09] MEDS ORDERED: VEDOLIZUMAB 300 MG in NS 250 ML IV ONE (15:00)
[2019-05-09 15:35] VITALS: BP 128/79
== END 2019-05-09 15:35 | disposition home or self-care (01) ==
LOC: M INFU 13:59
PROVIDERS: ATTEND Internal Medicine Gastroenterology
DX: K50.90 Crohn's disease, unspecified, without complications (principal); Z88.8 Allergy status to other drugs, medicaments and biological substances
CPT/HCPCS: 96365; J3380

== ENCOUNTER 2019-06-06 13:57 | Outpatient (CLI) | payer BC ==
[~2019-06-06] VITALS: Ht 165.1 cm; Wt 103.8 kg
[2019-06-06 14:00] VITALS: BP 152/75
[2019-06-06] MEDS ORDERED: VEDOLIZUMAB 300 MG in NS 250 ML IV ONE (15:00)
[2019-06-06 15:30] VITALS: BP 146/78
== END 2019-06-06 15:30 | disposition home or self-care (01) ==
LOC: M INFU 13:57
PROVIDERS: ATTEND Internal Medicine Gastroenterology
DX: K50.90 Crohn's disease, unspecified, without complications (principal); Z88.8 Allergy status to other drugs, medicaments and biological substances
CPT/HCPCS: 96365; J3380

== ENCOUNTER 2019-08-01 13:42 | Outpatient (CLI) | payer BC ==
[~2019-08-01] VITALS: Ht 165.1 cm; Wt 103.8 kg
[2019-08-01] MEDS ORDERED: VEDOLIZUMAB 300 MG in NS 250 ML IV ONE (14:00)
[2019-08-01 14:10] VITALS: BP 146/79
[2019-08-01 15:30] VITALS: BP 125/85
== END 2019-08-01 15:30 | disposition home or self-care (01) ==
LOC: M INFU 13:42
PROVIDERS: ATTEND Internal Medicine Gastroenterology
DX: K50.00 Crohn's disease of small intestine without complications (principal); Z88.8 Allergy status to other drugs, medicaments and biological substances; Z88.9 Allergy status to unspecified drugs, medicaments and biological substances
CPT/HCPCS: 96365; J3380

== ENCOUNTER → 2019-11-02 | Outpatient (CLI) | payer BC ==
[2019-11-02 13:42] LABS: BASO % 0.7 % (0.0-1.0); EOS # 0.3 10^3/uL (0.0-0.5); EOS % 4.6 % (0.0-3.0); HEMATOCRIT 43.8 % (36.0-47.0); HEMOGLOBIN 14.4 g/dl (12.0-15.5); LYMPH # 1.3 10^3/uL (1.5-5.0); LYMPH % 22.1 % (24.0-44.0); MEAN CORPUSCULAR HEMOGLOBIN 29.4 pg (27.0-33.0); MEAN CORPUSCULAR HGB CONC 32.9 g/dl (32.0-36.5); MEAN CORPUSCULAR VOLUME 89.6 fl (80.0-96.0); MONO # 0.5 10^3/uL (0.0-0.8); NEUTROPHILS # 3.8 10^3/uL (1.5-8.5); NEUTROPHILS % 63.1 % (36.0-66.0); PLATELET COUNT, AUTOMATED 241 10^3/uL (150-450); RED BLOOD COUNT 4.89 10^6/uL (4.00-5.40)
[2019-11-02 14:10] LABS: ALBUMIN 3.5 GM/DL (3.2-5.2); ALT/SGPT 118 U/L (12-78); BILIRUBIN,TOTAL 0.5 MG/DL (0.2-1.0); BLOOD UREA NITROGEN 13 MG/DL (7-18); CALCIUM LEVEL 8.9 MG/DL (8.5-10.1); CARBON DIOXIDE LEVEL 24 MEQ/L (21-32); CHLORIDE LEVEL 105 MEQ/L (98-107); CHOLESTEROL LEVEL 237 MG/DL (<200); CREATININE FOR GFR 0.91 MG/DL (0.55-1.30); GLOMERULAR FILTRATION RATE > 60.0 (>58); GLUCOSE, FASTING 118 MG/DL (70-100); HDL CHOLESTEROL 50 MG/DL (>40); LDL CHOLESTEROL 141 MG/DL (<100); NON-HDL-C 187 MG/DL; POTASSIUM SERUM 3.9 MEQ/L (3.5-5.1); SODIUM LEVEL 135 MEQ/L (136-145); TRIGLYCERIDES LEVEL 230 MG/DL (<150)
== END ==
LOC: M LAB 13:00
PROVIDERS: ATTEND Nurse Practitioner
DX: E06.3 Autoimmune thyroiditis (principal); I10 Essential (primary) hypertension; E78.5 Hyperlipidemia, unspecified

== ENCOUNTER → 2019-11-28 | Outpatient (CLI) | payer BC ==
[2019-11-28 11:56] LABS: ALBUMIN 3.3 GM/DL (3.2-5.2); ALT/SGPT 32 U/L (12-78); BILIRUBIN,DIRECT 0.2 MG/DL (0.0-0.2); BILIRUBIN,TOTAL 0.9 MG/DL (0.2-1.0); BLOOD UREA NITROGEN 10 MG/DL (7-18); CALCIUM LEVEL 8.6 MG/DL (8.5-10.1); CARBON DIOXIDE LEVEL 23 MEQ/L (21-32); CHLORIDE LEVEL 107 MEQ/L (98-107); GLOMERULAR FILTRATION RATE > 60.0 (>58); GLUCOSE, FASTING 105 MG/DL (70-100); POTASSIUM SERUM 3.9 MEQ/L (3.5-5.1); SODIUM LEVEL 137 MEQ/L (136-145); TOTAL PROTEIN 7.7 GM/DL (6.4-8.2)
== END ==
LOC: M LAB 10:35
PROVIDERS: ATTEND Nurse Practitioner
DX: R74.8 Abnormal levels of other serum enzymes (principal); E78.5 Hyperlipidemia, unspecified; E06.3 Autoimmune thyroiditis; K50.113 Crohn's disease of large intestine with fistula

== ENCOUNTER → 2020-01-08 | Outpatient (CLI) | payer BC ==
[2020-01-08 15:59] LABS: HEMATOCRIT 42.5 % (36.0-47.0); HEMOGLOBIN 14.2 g/dl (12.0-15.5); MEAN CORPUSCULAR HEMOGLOBIN 29.8 pg (27.0-33.0); MEAN CORPUSCULAR HGB CONC 33.4 g/dl (32.0-36.5); MEAN CORPUSCULAR VOLUME 89.1 fl (80.0-96.0); PLATELET COUNT, AUTOMATED 228 10^3/uL (150-450); RED BLOOD COUNT 4.77 10^6/uL (4.00-5.40)
[2020-01-08 16:18] LABS: ERYTHROCYTE SEDIMENTATION RATE 10 mm/hr (0-20)
[2020-01-08 16:56] LABS: ALBUMIN 3.5 GM/DL (3.2-5.2); ALT/SGPT 36 U/L (12-78); BILIRUBIN,DIRECT 0.1 MG/DL (0.0-0.2); BILIRUBIN,TOTAL 0.6 MG/DL (0.2-1.0); BLOOD UREA NITROGEN 12 MG/DL (7-18); C REACTIVE PROTEIN QUANTITATIV 1.91 MG/DL (0.00-0.30); CALCIUM LEVEL 8.9 MG/DL (8.5-10.1); CARBON DIOXIDE LEVEL 23 MEQ/L (21-32); CHLORIDE LEVEL 107 MEQ/L (98-107); CREATININE FOR GFR 0.96 MG/DL (0.55-1.30); GLOMERULAR FILTRATION RATE > 60.0 (>58); GLUCOSE, FASTING 112 MG/DL (70-100); POTASSIUM SERUM 4.2 MEQ/L (3.5-5.1); SODIUM LEVEL 137 MEQ/L (136-145); TOTAL PROTEIN 8.2 GM/DL (6.4-8.2)
== END ==
LOC: M LAB 15:25
PROVIDERS: ATTEND Physician Assistant
DX: K50.913 Crohn's disease, unspecified, with fistula (principal)

== ENCOUNTER → 2020-01-10 | Outpatient (CLI) | payer BC ==
[~2020-01-10] MED LIST changes: +GLUCAGON INJ 1MG VIAL As Ordered ONE; +ISOVUE-370 76% 100ML VIAL As Ordered ONE; +VoLumen 0.1% SUSPENSION 450ML BOTTLE As Ordered ONE
== END ==
LOC: M RAD 08:59
PROVIDERS: ATTEND Physician Assistant
DX: Z53.9 Procedure and treatment not carried out, unspecified reason (principal); K50.913 Crohn's disease, unspecified, with fistula

== ENCOUNTER → 2020-02-07 | Outpatient (CLI) | payer BC ==
--- NOTE | 2020-03-27 10:25 | REP ---
CT ENTEROGRAPHY WITH ORAL AND IV CONTRAST HISTORY: Crohn's disease with fistula, unspecified gastrointestinal tract location. COMPARISON: No comparison CT imaging. CT CONTRAST DOSE: 100 mL of intravenous Isovue-370 is administered. Oral contrast was achieved by administration of p.o. VoLumen. 0.6 mg of intravenous Glucagon is given. CT ENTEROGRAPHY FINDINGS: Digital preliminary dumper mold cleaner radiograph demonstrates an unremarkable bowel gas pattern. The lung bases are clear on axial CT images. There are surgical sutures about the proximal stomach suggesting gastric bypass procedure or hiatal hernia surgery. There is a tiny accessory splenule t the splenic hilus. No abnormality is noted in the pancreas. No adrenal lesion is seen. The gallbladder is unremarkable. The kidneys enhance symmetrically and are morphologically intact. No hydronephrosis is seen. There is fatty infiltration of the liver. No focal liver mass lesion is seen. Normal caliber aorta. No abdominal wall defect is seen. There is an IUD in place in the uterus. There is a cystic area in the right adnexa, which measures 4.4 cm in greatest diameter. No free fluid is seen. Patient appears to be status post colectomy with anastomosis in the rectum. No mural thickening is seen. There is no evidence of fistula or obstruction. No abnormal fluid collection is seen. No abscess or free air is seen. IMPRESSION: Status post colectomy. No evidence of active inflammatory bowel disease changes. Postoperative changes. Intrauterine device (IUD) in place. A 4.4 cm cyst suspected in the right ovary. MTDD
== END ==
LOC: M RAD 14:00
PROVIDERS: ATTEND Physician Assistant
DX: K50.913 Crohn's disease, unspecified, with fistula (principal)
CPT/HCPCS: 74177; J1610; Q9967

== ENCOUNTER → 2020-03-07 | Outpatient (REF) | payer BC ==
[~2020-03-07] MED LIST changes: -GLUCAGON INJ 1MG VIAL As Ordered ONE; -ISOVUE-370 76% 100ML VIAL As Ordered ONE; -VoLumen 0.1% SUSPENSION 450ML BOTTLE As Ordered ONE
== END ==
LOC: M SFHCWAGY 19:12
PROVIDERS: ATTEND Obstetrics & Gynecology
DX: Z12.4 Encounter for screening for malignant neoplasm of cervix (principal)

== ENCOUNTER → 2020-03-07 | Outpatient (CLI) | payer BC ==
--- NOTE | 2020-03-07 11:52 | REPMRS ---
Patient History The patient states she had a clinical breast exam in March 2020. Family history of endometrial cancer at age 65 in mother, colorectal cancer at age 50 or over in paternal aunt, colorectal cancer at age 50 or over in paternal uncle, breast cancer in paternal cousin. Taking unspecified hormones for 6 months. 3D TOMOSYNTHESIS WAS PERFORMED. [facility] lifetime risk for breast cancer is 13.3%. VOLPARA DENSITY B. Digital Woman Screen Mammo: March 07, 2020 - Exam #: [id number] Bilateral CC and MLO view(s) were taken. Technologist: Lakeisha Faustin, Technologist Prior study comparison: February 01, 2019, right breast digital mammo diagnostic unilateral, performed at [facility]. March 27, 2018, bilateral digital mammo screening bilat, performed at [facility]. FINDINGS: There are scattered fibroglandular densities. There has been no change in the appearance of the mammogram from the prior studies. There is a mild amount of residual fibroglandular tissue which is fairly symmetric. There is no interval development of dominant mass, architectural distortion, or clustered microcalcification suggestive of malignancy. Assessment: BI-RADS/ACR category 1 mammogram. Negative Mammogram. Recommendation Routine screening mammogram in 1 year (for women over age 40). This mammogram was interpreted with the aid of an FDA-approved computer-aided dectection system. Electronically Signed By: Christophe Mcfaddne MD 03/07/20 [id number]
== END ==
LOC: M WHC 09:16
PROVIDERS: ATTEND Obstetrics & Gynecology
DX: Z12.31 Encounter for screening mammogram for malignant neoplasm of breast (principal); Z90.49 Acquired absence of other specified parts of digestive tract; Z80.0 Family history of malignant neoplasm of digestive organs; Z79.899 Other long term (current) drug therapy

== ENCOUNTER → 2020-04-10 | Outpatient (CLI) | payer BC ==
--- NOTE | 2020-04-15 08:11 | REP ---
PELVIC ULTRASOUND HISTORY: Right ovarian cyst. TECHNIQUE: Real-time sonographic evaluation of the pelvis is performed utilizing transabdominal and endovaginal technique. FINDINGS: Bladder measures 5.8 x 8.3 x 5.3 cm. The uterus measures 7.0 x 3.3 x 5.6 cm. There is an intrauterine device (IUD) seen within the endometrial canal. No right ovarian cyst is seen. Right ovary measures 3.1 x 1.6 x 1.3 cm, with no evidence of ovarian torsion with duplex Doppler evaluation. Left ovary measures 3.7 x 2.2 x 2.8 cm. There is also no torsion of the left ovary. There is a small simple cyst of the left ovary measuring 2.8 x 2.3 x 1.9 cm. IMPRESSION: Previously noted right ovarian cyst on a CT of 02/07/2020 has resolved. There is a simple cyst of the left ovary with a maximum diameter of 2.8 cm. Intrauterine device (IUD) is seen within the endometrial canal. MTDD
== END ==
LOC: M WHC 10:07
PROVIDERS: ATTEND Obstetrics & Gynecology
DX: N83.202 Unspecified ovarian cyst, left side (principal); Z97.5 Presence of (intrauterine) contraceptive device

== ENCOUNTER → 2020-05-09 | Outpatient (CLI) | payer BC ==
[2020-05-09 11:37] LABS: ALBUMIN 3.6 GM/DL (3.2-5.2); ALT/SGPT 25 U/L (12-78); BILIRUBIN,TOTAL 0.6 MG/DL (0.2-1.0); BLOOD UREA NITROGEN 10 MG/DL (7-18); CALCIUM LEVEL 9.3 MG/DL (8.5-10.1); CARBON DIOXIDE LEVEL 25 MEQ/L (21-32); CHLORIDE LEVEL 106 MEQ/L (98-107); CHOLESTEROL LEVEL 248 MG/DL (<200); CHOLESTEROL RISK RATIO 5.391 (<5); FREE T4 1.21 NG/DL (0.76-1.46); GLOMERULAR FILTRATION RATE > 60.0 (>58); GLUCOSE, FASTING 85 MG/DL (70-100); HDL CHOLESTEROL 46 MG/DL (>40); LDL CHOLESTEROL 157 MG/DL (<100); NON-HDL-C 202 MG/DL; POTASSIUM SERUM 4.3 MEQ/L (3.5-5.1); SODIUM LEVEL 136 MEQ/L (136-145); TOTAL PROTEIN 8.1 GM/DL (6.4-8.2); TRIGLYCERIDES LEVEL 227 MG/DL (<150)
== END ==
LOC: M LAB 09:58
PROVIDERS: ATTEND Nurse Practitioner
DX: E06.3 Autoimmune thyroiditis (principal); E78.5 Hyperlipidemia, unspecified; I10 Essential (primary) hypertension

== ENCOUNTER → 2020-06-03 | Outpatient (CLI) | payer BC | LOC: M LABSMTC 11:08 | PROVIDERS: ATTEND Family Medicine | DX: Z20.828 Contact with and (suspected) exposure to other viral communicable diseases (principal) ==

== ENCOUNTER → 2020-10-16 | Outpatient (CLI) | payer BC ==
[~2020-10-16] MED LIST changes: +E-Z-GAS II EFFERVESCENT PACKET (SODIUM BICARB./CITRIC ACID/SIMETHICONE) As Ordered ONE; +E-Z-HD 98% w/w 340GM SUSP BTL As Ordered ONE; +E-Z-PAQUE 96% w/w SUSP 176GM BTL As Ordered ONE; -LISI-538 PO; +LISI20TA33 PO
--- NOTE | 2020-10-16 16:37 | REP ---
INDICATION: GASTRAL INTESTINAL HEMORRHAGE, US 1ST THEN UGI. COMPARISON: None. TECHNIQUE: Real-time sonographic evaluation of right upper quadrant performed. FINDINGS: The gallbladder demonstrates no evidence of intraluminal sludge or calculi, wall thickening or pericholecystic fluid. There is no intrahepatic or extrahepatic biliary dilatation, common bile duct measures 2 mm in maximum diameter. The liver is mildly enlarged having a length of 18.4 cm. Echotexture of the liver appears somewhat increased suggesting diffuse fatty infiltration. No liver mass is seen. The visualized pancreas is unremarkable, not well seen due to overlying bowel gas. The right kidney demonstrates no hydronephrosis, with a normal size of 10.5 cm in length. No free fluid is seen. IMPRESSION: Mild hepatomegaly and diffuse fibrofatty infiltration of the liver. Otherwise unremarkable right upper quadrant ultrasound. <Electronically signed by Christophe Mcfadden > 10/16/20 [id number]
--- NOTE | 2020-10-16 16:43 | REP ---
INDICATION: GASTRO- INTESTINAL HEMORRHAGE, US 1ST THEN UGI. COMPARISON: None. TECHNIQUE: The procedure was performed under the direct supervision of Dr. Mcfadden. The images were reviewed with Dr. Mcfadden. Liquid barium was administered in the upright and prone oblique positions. 3.2 minutes of fluoro time was utilized for this procedure. FINDINGS: The oral and pharyngeal stages of deglutition are unremarkable. Esophageal transport is prompt and efficient and there is no esophagitis, stricture or mucosal ring. There is a small sliding-type hiatal hernia. There are postsurgical changes of the stomach consistent with the patient's stated history of gastric sleeve. In the anterior wall of the stomach there is an ulcer with surrounding edema. This is irregular in appearance. Recommend endoscopy for further evaluation to rule out an associated neoplasm.. The duodenum is grossly normal. The mucosal folds are smooth and regular. There is no evidence of duodenitis, pancreatitis, peptic ulcer disease or neoplasm. The visualized portion of the proximal small bowel appears normal in course and caliber. The barium column was followed through the small bowel to the level of the terminal ileum. Small bowel transit time was approximately 35 minutes. During fluoroscopy gentle palpation shows all loops are freely movable and pliable. There are no fixed regulated loops. The small bowel mucosal pattern is normal in course and caliber. There is no transition to suggest a partial small bowel obstruction. The patient is status post colectomy. There is no evidence of stricture or obstruction at the anastomosis. There is contrast seen in the rectum. IMPRESSION: 1. There is a sliding-type hiatal hernia. 2. In the anterior wall of the stomach there is an ulcer with surrounding edema. This is irregular in appearance. Recommend endoscopy for further evaluation to rule out an associated neoplasm.. <Electronically signed by You Tinsley > 10/16/20 [id number] <Electronically signed by Christophe Mcfadden > 10/16/20 [id number]
== END ==
LOC: M RAD 09:49
PROVIDERS: ATTEND Surgery
DX: K92.2 Gastrointestinal hemorrhage, unspecified (principal); R16.0 Hepatomegaly, not elsewhere classified; K76.0 Fatty (change of) liver, not elsewhere classified; K44.9 Diaphragmatic hernia without obstruction or gangrene; K28.9 Gastrojejunal ulcer, unspecified as acute or chronic, without hemorrhage or perforation

== ENCOUNTER → 2021-01-13 | Outpatient (CLI) | payer BC ==
[~2021-01-13] MED LIST changes: +BUSP5TA PO; +CITA10TA7 PO; -E-Z-GAS II EFFERVESCENT PACKET (SODIUM BICARB./CITRIC ACID/SIMETHICONE) As Ordered ONE; -E-Z-HD 98% w/w 340GM SUSP BTL As Ordered ONE; -E-Z-PAQUE 96% w/w SUSP 176GM BTL As Ordered ONE; +LEVO-86 PO; +LISI10TA22 PO; +ROSU10TA6 PO
[2021-01-13 11:31] LABS: ALBUMIN 3.6 GM/DL (3.2-5.2); ALT/SGPT 23 U/L (12-78); BILIRUBIN,TOTAL 0.5 MG/DL (0.2-1.0); BLOOD UREA NITROGEN 8 MG/DL (7-18); CALCIUM LEVEL 8.8 MG/DL (8.5-10.1); CARBON DIOXIDE LEVEL 26 MEQ/L (21-32); CHLORIDE LEVEL 104 MEQ/L (98-107); CHOLESTEROL LEVEL 245 MG/DL (<200); CREATININE FOR GFR 0.84 MG/DL (0.55-1.30); GLOMERULAR FILTRATION RATE > 60.0 (>58); GLUCOSE, FASTING 82 MG/DL (70-100); HDL CHOLESTEROL 49 MG/DL (>40); LDL CHOLESTEROL 157 MG/DL (<100); NON-HDL-C 196 MG/DL; POTASSIUM SERUM 4.3 MEQ/L (3.5-5.1); SODIUM LEVEL 136 MEQ/L (136-145); TOTAL PROTEIN 7.6 GM/DL (6.4-8.2); TRIGLYCERIDES LEVEL 195 MG/DL (<150)
[2021-01-16 06:08] LABS: Alkaline Phosphatase Iso-Bone 33 % (14-68); Alkaline Phosphatase Iso-Intes 9 % (0-18); Alkaline Phosphatase Iso-Liver 58 % (18-85); TOTAL ALK PHOS 102 IU/L (48-121)
== END ==
LOC: M LAB 09:55
PROVIDERS: ATTEND Physician Assistant
DX: I10 Essential (primary) hypertension (principal)

== ENCOUNTER → 2021-04-13 | Outpatient (CLI) | payer BC ==
[~2021-04-13] MED LIST changes: -BUSP5TA PO; -CITA10TA7 PO; -LEVO-86 PO; -LISI10TA22 PO; -ROSU10TA6 PO
[2021-04-13 14:53] LABS: BASO % 0.5 % (0.0-1.0); EOS # 0.2 10^3/uL (0.0-0.5); EOS % 2.8 % (0.0-3.0); HEMOGLOBIN 13.5 g/dl (12.0-15.5); LYMPH # 1.3 10^3/uL (1.5-5.0); LYMPH % 15.6 % (24.0-44.0); MEAN CORPUSCULAR HGB CONC 33.8 g/dl (32.0-36.5); MEAN CORPUSCULAR VOLUME 88.9 fl (80.0-96.0); MONO # 0.5 10^3/uL (0.0-0.8); MONO % 6.4 % (2.0-8.0); NEUTROPHILS # 6.3 10^3/uL (1.5-8.5); NEUTROPHILS % 74.3 % (36.0-66.0); PLATELET COUNT, AUTOMATED 247 10^3/uL (150-450); WHITE BLOOD COUNT 8.5 10^3/uL (4.0-10.0)
[2021-04-13 15:23] LABS: ALBUMIN 3.3 GM/DL (3.2-5.2); ALT/SGPT 26 U/L (12-78); BILIRUBIN,TOTAL 0.4 MG/DL (0.2-1.0); BLOOD UREA NITROGEN 14 MG/DL (7-18); CALCIUM LEVEL 8.6 MG/DL (8.5-10.1); CARBON DIOXIDE LEVEL 23 MEQ/L (21-32); CHLORIDE LEVEL 104 MEQ/L (98-107); CHOLESTEROL LEVEL 169 MG/DL (<200); CREATININE FOR GFR 1.01 MG/DL (0.55-1.30); GLOMERULAR FILTRATION RATE > 60.0 (>58); GLUCOSE, FASTING 134 MG/DL (70-100); HDL CHOLESTEROL 48 MG/DL (>40); LDL CHOLESTEROL 84 MG/DL (<100); NON-HDL-C 121 MG/DL; POTASSIUM SERUM 4.2 MEQ/L (3.5-5.1); SODIUM LEVEL 136 MEQ/L (136-145); THYROID STIMULATING HORMONE 0.979 uIU/ML (0.358-3.740); TOTAL PROTEIN 8.1 GM/DL (6.4-8.2); TRIGLYCERIDES LEVEL 184 MG/DL (<150)
[2021-04-14 17:07] LABS: EBV VIRAL CAPSID AG IgG >600.0 U/mL (0.0-17.9); EBV VIRAL CAPSID AG IgM <36.0 U/mL (0.0-35.9)
== END ==
LOC: M LAB 13:15
PROVIDERS: ATTEND Physician Assistant
DX: E06.3 Autoimmune thyroiditis (principal); I10 Essential (primary) hypertension; R53.83 Other fatigue; E78.5 Hyperlipidemia, unspecified

== ENCOUNTER → 2021-04-27 | Outpatient (REF) | payer BC | LOC: M SFHCWAGY 19:35 | PROVIDERS: ATTEND Obstetrics & Gynecology | DX: Z12.4 Encounter for screening for malignant neoplasm of cervix (principal) ==

== ENCOUNTER → 2021-04-27 | Outpatient (CLI) | payer BC ==
--- NOTE | 2021-04-27 14:06 | REPMRS ---
Patient History The patient states she had a clinical breast exam on 04-27-2021. Patient is nulliparous. Family history of endometrial cancer at age 65 in mother, colorectal cancer at age 50 or over in paternal aunt, colorectal cancer at age 50 or over in paternal uncle, breast cancer in paternal cousin. Taking unspecified hormones for 7 months. Patient states no breast complaints today. Patient has signed MRS History Sheet. Digital Woman Screen Mammo: April 27, 2021 - Exam #: [id number] Bilateral CC and MLO view(s) were taken. Technologist: Pam Baxter, Biomedical Field Service Engineer Prior study comparison: March 07, 2020, bilateral digital woman screen mammo performed at [facility]. February 01, 2019, right breast digital mammo diagnostic unilateral, performed at [facility]. FINDINGS: The breast tissue is almost entirely fat. Screening. Digital screening (2D) mammography was performed bilaterally in the CC and MLO projections. Additionally, breast tomosynthesis (3D mammography) was performed bilaterally in the CC and MLO projections. Todays exam was compared to the prior exam/exams. By history, the patient has no complaints of a palpable breast abnormality or other significant breast complaints. The Volpara volumetric breast density category is A, the breasts are almost entirely fatty. The breasts are unchanged in size and shape. There are no natalie-soft tissue densities or spiculated masses. There is no internal architectural distortion. There are no suspicious natalie-calcific clusters. Skin thickening or nipple retraction is not present. IMPRESSION: BI-RADS Category 2- Benign Findings. There is no evidence of malignant alteration of the breasts. Followup examination recommended in one year. The lifetime Tyrer-Cuzick score is 13.2% This mammogram was read with the assistance of Meetrics,an FDA approved computer aided detection system for mammography. Negative x-ray reports should not delay surgical consultation if a dominant or clinically suspicious mass is present. Not all breast cancers can be identified by mammography. Therefore, we recommend that you continue to perform regular breast self-examination and physical examination and then promptly contact your physician of any concerns or changes. Adenosis and dense breasts may obscure an underlying neoplasm. No significant changes when compared with prior studies. Assessment: BI-RADS/ACR category 2 mammogram. Benign Findings. Recommendation Routine screening mammogram of both breasts in 1 year. Electronically Signed By: Nikolai Stinson MD 04/27/21 [id number]
== END ==
LOC: M WHC 10:45
PROVIDERS: ATTEND Obstetrics & Gynecology
DX: Z12.31 Encounter for screening mammogram for malignant neoplasm of breast (principal); Z80.0 Family history of malignant neoplasm of digestive organs; Z80.49 Family history of malignant neoplasm of other genital organs; Z80.3 Family history of malignant neoplasm of breast

== ENCOUNTER → 2021-05-11 | Outpatient (CLI) | payer BC ==
--- NOTE | 2021-05-11 14:59 | REP ---
INDICATION: COUGH AND SHORTNESS OF BREATH. COMPARISON: 11/01/2018 the latest prior TECHNIQUE: PA and lateral FINDINGS: The superior mediastinal structures are midline. The cardiac silhouette is unremarkable in size, shape, and position. The diaphragmatic surfaces of the lungs are regular, and the costophrenic angles are clear. The pulmonary thompson are clear. The imaged osseous structures are intact. IMPRESSION: There is no acute cardiopulmonary disease. <Electronically signed by Smooth Del Real > 05/11/21 [id number]
== END ==
LOC: M WUC 13:25
PROVIDERS: ATTEND Physician Assistant
DX: R06.02 Shortness of breath (principal); R05.1 Acute cough

== ENCOUNTER → 2021-06-24 | Outpatient (CLI) | payer BC ==
[~2021-06-24] MED LIST changes: +BUSP5TA PO; +CITA10TA5 PO; +LEVO-86 PO; +LISI10TA22 PO; +ROSU10TA6 PO
[2021-06-24 11:02] LABS: BASO % 0.6 % (0.0-1.0); EOS # 0.3 10^3/uL (0.0-0.5); EOS % 4.1 % (0.0-3.0); HEMATOCRIT 42.9 % (36.0-47.0); HEMOGLOBIN 14.1 g/dl (12.0-15.5); LYMPH # 1.8 10^3/uL (1.5-5.0); LYMPH % 27.8 % (24.0-44.0); MEAN CORPUSCULAR HEMOGLOBIN 29.7 pg (27.0-33.0); MEAN CORPUSCULAR HGB CONC 32.9 g/dl (32.0-36.5); MEAN CORPUSCULAR VOLUME 90.5 fl (80.0-96.0); MONO # 0.4 10^3/uL (0.0-0.8); MONO % 6.6 % (2.0-8.0); NEUTROPHILS # 3.8 10^3/uL (1.5-8.5); NEUTROPHILS % 60.6 % (36.0-66.0); PLATELET COUNT, AUTOMATED 279 10^3/uL (150-450); RED BLOOD COUNT 4.74 10^6/uL (4.00-5.40); WHITE BLOOD COUNT 6.3 10^3/uL (4.0-10.0)
[2021-06-24 11:32] LABS: ALBUMIN 3.5 GM/DL (3.2-5.2); ALT/SGPT 34 U/L (12-78); BILIRUBIN,TOTAL 0.4 MG/DL (0.2-1.0); BLOOD UREA NITROGEN 11 MG/DL (7-18); CALCIUM LEVEL 9.1 MG/DL (8.5-10.1); CARBON DIOXIDE LEVEL 25 MEQ/L (21-32); CHLORIDE LEVEL 106 MEQ/L (98-107); CREATININE FOR GFR 0.87 MG/DL (0.55-1.30); FREE T4 1.13 NG/DL (0.76-1.46); GLOMERULAR FILTRATION RATE > 60.0 (>58); GLUCOSE, FASTING 97 MG/DL (70-100); POTASSIUM SERUM 3.9 MEQ/L (3.5-5.1); SODIUM LEVEL 138 MEQ/L (136-145); TOTAL PROTEIN 7.9 GM/DL (6.4-8.2)
== END ==
LOC: M LAB 10:23
PROVIDERS: ATTEND Family Medicine
DX: R06.02 Shortness of breath (principal); R53.83 Other fatigue

== ENCOUNTER → 2021-06-29 | Outpatient (CLI) | payer BC ==
[~2021-06-29] MED LIST changes: -CITA10TA5 PO; +CITA10TA7 PO
== END ==
LOC: M LABSMTC 09:56
PROVIDERS: ATTEND Anesthesiology
DX: Z01.812 Encounter for preprocedural laboratory examination (principal); Z20.822 Contact with and (suspected) exposure to COVID-19

== ENCOUNTER 2021-07-01 06:58 | Day surgery (SDC) | payer BC ==
[~2021-07-01] VITALS: Ht 165.1 cm; Wt 106.1 kg
[~2021-07-01 06:58] MED LIST changes: +CITA10TA5 PO; -CITA10TA7 PO; +LR 1,000 ML IV ONE
[2021-07-01] MEDS ORDERED: LIDOCAINE 2% 100MG/5ML SDV (FOR ANES.) As Ordered ONE (08:00)
[2021-07-01] MEDS ORDERED: KETOROLAC 60MG 2ML VIAL As Ordered ONE (08:00)
[2021-07-01] MEDS ORDERED: ONDANSETRON 4MG/2ML VIAL As Ordered ONE (08:00)
[2021-07-01] MEDS ORDERED: dexameTHASONE 4 MG/ML 1ML VIAL (J1100 PER 1MG) As Ordered ONE (08:00)
[2021-07-01] MEDS ORDERED: propofoL 200 MG/20 ML VIAL As Ordered ONE (08:00)
[2021-07-01 08:01] LABS: HEMATOCRIT 42.2 % (36.0-47.0); HEMOGLOBIN 14.1 g/dl (12.0-15.5); MEAN CORPUSCULAR HEMOGLOBIN 29.8 pg (27.0-33.0); MEAN CORPUSCULAR HGB CONC 33.4 g/dl (32.0-36.5); MEAN CORPUSCULAR VOLUME 89.2 fl (80.0-96.0); PLATELET COUNT, AUTOMATED 278 10^3/uL (150-450); RED BLOOD COUNT 4.73 10^6/uL (4.00-5.40); WHITE BLOOD COUNT 7.9 10^3/uL (4.0-10.0)
[2021-07-01] MEDS ORDERED: MIDAZOLAM INJ 2MG/2ML VIAL (J2250 PER 1MG) As Ordered ONE (08:01)
[2021-07-01] MEDS ORDERED: fentaNYL 100 MCG/2 ML INJECTION (J3010) As Ordered ONE (08:01)
[2021-07-01 08:28] LABS: HCG, SERUM QUALITATIVE NEGATIVE (NEGATIVE)
[2021-07-01] MEDS ORDERED: LIDOCAINE 1% SDV 30ML VIAL As Ordered ONE (08:30)
[2021-07-01] MEDS ORDERED: LEVONORGESTREL 52MG (MIRENA) IUD As Ordered ONE (08:31)
--- NOTE | 2021-07-01 09:23 | ROOPDOC ---
[facility] Report Of Operation Report of Operation DATE OF PROCEDURE: 07/01/21 PREPROCEDURE DIAGNOSES: abnormal uterine bleeding (controlled with IUD; ). abnormal cervix/distorted anatomy. Crohn's disease POSTPROCEDURE DIAGNOSES: same PROCEDURE PERFORMED: Exam under anesthesia. Removal of Mirena IUD, Insertion of new Mirena IUD SURGEON: Lit Andre DO BUSINESS BANKER: none ANESTHESIA: IV sedation ESTIMATED BLOOD LOSS: Approximately 0 mL. COMPLICATIONS: none. REMARKS: Patient does not tolerate pelvic exams/speculum in office. Difficult anatomy due to distortion of cervix/uterus from pelvic adhesive disease. FINDINGS: cervical os is pinpoint and flush with the apex of the vagina. No distinct ectocervix. SPECIMENS REMOVED: intrauterine device DESCRIPTION OF PROCEDURE: The patient was taken to the operating room with an IV running. She was placed in the dorsal supine position. A timeout was performed per protocol. She was prepared and draped in normal sterile fashion and placed in the high lithotomy position. Bladder was drained with in and out catheter. Sterile speculum was placed with good visualization of the IUD strings and the pinpoint cervical os. Ectocervix was difficult to delineate on exam. I was able to find the os by following the IUD strings. The IUD strings were grasped with forceps and downward traction was applied, thus removing the IUD in its entirety. The uterus was sounded to 7 cm. The new Mirena IUD was inserted without any difficulty. The strings were cut 1 cm from the office. No bleeding was noted. All instruments were removed from the vagina. The patient tolerated the entire procedure very well. She was transferred to the PACU in good stable condition. RITESH ANDRE DO Jul 01, 2021 09:23
[2021-07-01 09:59] VITALS: BP 129/60
== END 2021-07-01 10:20 | disposition home or self-care (01) ==
LOC: M SDC 06:58
PROVIDERS: ATTEND Obstetrics & Gynecology
DX: N93.9 Abnormal uterine and vaginal bleeding, unspecified (principal); Z30.433 Encounter for removal and reinsertion of intrauterine contraceptive device; I10 Essential (primary) hypertension; E78.5 Hyperlipidemia, unspecified; E03.9 Hypothyroidism, unspecified; Z87.891 Personal history of nicotine dependence; Z88.8 Allergy status to other drugs, medicaments and biological substances; Z79.899 Other long term (current) drug therapy; D64.9 Anemia, unspecified; F41.9 Anxiety disorder, unspecified
CPT/HCPCS: 36415; 58300; 58301; 84703; 85027; 86850; 86900; 86901; J1100; J1885; J2250; J2405; J3010; J7298

== ENCOUNTER → 2021-07-09 | Outpatient (CLI) | payer BC ==
[~2021-07-09] MED LIST changes: -LR 1,000 ML IV ONE
== END ==
LOC: M LAB 11:46
PROVIDERS: ATTEND Allergy & Immunology Allergy
DX: J31.0 Chronic rhinitis (principal)

== ENCOUNTER → 2021-11-27 | Outpatient (CLI) | payer BC ==
[~2021-11-27] MED LIST changes: -CITA10TA5 PO; +CITA10TA7 PO
== END ==
LOC: M RAD 09:40
PROVIDERS: ATTEND Internal Medicine Gastroenterology
DX: R11.0 Nausea (principal)

== ENCOUNTER → 2022-05-06 | Outpatient (CLI) | payer BC | LOC: M WHC 12:28 | PROVIDERS: ATTEND Physician Assistant | DX: Z12.31 Encounter for screening mammogram for malignant neoplasm of breast (principal) ==

== ENCOUNTER → 2022-10-15 | Outpatient (CLI) | payer BC ==
[2022-10-15 12:32] LABS: BASO # 0.1 10^3/uL (0.0-0.2); BASO % 0.7 % (0.0-1.0); EOS # 0.3 10^3/uL (0.0-0.5); EOS % 4.3 % (0.0-3.0); HEMATOCRIT 43.7 % (36.0-47.0); HEMOGLOBIN 14.4 g/dl (12.0-15.5); LYMPH # 1.9 10^3/uL (1.5-5.0); LYMPH % 26.9 % (24.0-44.0); MEAN CORPUSCULAR HEMOGLOBIN 29.9 pg (27.0-33.0); MEAN CORPUSCULAR VOLUME 90.7 fl (80.0-96.0); MONO # 0.5 10^3/uL (0.0-0.8); MONO % 7.6 % (2.0-8.0); NEUTROPHILS # 4.2 10^3/uL (1.5-8.5); NEUTROPHILS % 60.2 % (36.0-66.0); PLATELET COUNT, AUTOMATED 315 10^3/uL (150-450); RED BLOOD COUNT 4.82 10^6/uL (4.00-5.40)
[2022-10-15 12:56] LABS: ALBUMIN 3.6 G/DL (3.2-5.2); ALKALINE PHOSPHATASE 116 U/L (46-116); ALT/SGPT 30 U/L (7.0-40); AST/SGOT 35 U/L (<34); BILIRUBIN,TOTAL 0.6 MG/DL (0.3-1.2); BLOOD UREA NITROGEN 11 MG/DL (9-23); CALCIUM LEVEL 9.3 MG/DL (8.5-10.1); CARBON DIOXIDE LEVEL 25 MMOL/L (20-31); CHLORIDE LEVEL 103 MMOL/L (98-107); CHOLESTEROL LEVEL 177 MG/DL (<200); CHOLESTEROL RISK RATIO 3.92 (<5); CREATININE FOR GFR 0.88 MG/DL (0.55-1.30); GLOMERULAR FILTRATION RATE > 60.0 (>58); GLUCOSE, FASTING 78 MG/DL (60-100); HDL CHOLESTEROL 45.1 MG/DL (>40); LDL CHOLESTEROL 96.1 MG/DL (<100); NON-HDL-C 131.9 MG/DL; POTASSIUM SERUM 4.6 MMOL/L (3.5-5.1); SODIUM LEVEL 135 MMOL/L (136-145); TRIGLYCERIDES LEVEL 179 MG/DL (<150)
== END ==
LOC: M LAB 11:55
PROVIDERS: ATTEND Physician Assistant
DX: I10 Essential (primary) hypertension (principal); E78.5 Hyperlipidemia, unspecified

== ENCOUNTER → 2023-02-04 | Outpatient (CLI) | payer BC ==
[2023-02-05 14:10] LABS: EBV VIRAL CAPSID AG IgG > 600.0 U/mL (0.0-17.9); EBV VIRAL CAPSID AG IgM <36.0 U/mL (0.0-35.9)
== END ==
LOC: M LAB 12:12
PROVIDERS: ATTEND Physician Assistant
DX: R53.83 Other fatigue (principal)

== ENCOUNTER → 2023-05-13 | Outpatient (CLI) | payer BC ==
[2023-05-13 15:46] LABS: HEMATOCRIT 43.4 % (36.0-47.0); HEMOGLOBIN 14.7 g/dl (12.0-15.5); MEAN CORPUSCULAR HEMOGLOBIN 30.6 pg (27.0-33.0); MEAN CORPUSCULAR HGB CONC 33.9 g/dl (32.0-36.5); MEAN CORPUSCULAR VOLUME 90.2 fl (80.0-96.0); PLATELET COUNT, AUTOMATED 343 10^3/uL (150-450); RED BLOOD COUNT 4.81 10^6/uL (4.00-5.40); WHITE BLOOD COUNT 10.1 10^3/uL (4.0-10.0)
[2023-05-13 16:18] LABS: ALBUMIN 3.7 G/DL (3.2-5.2); ALKALINE PHOSPHATASE 93 U/L (46-116); ALT/SGPT 17 U/L (7.0-40); AST/SGOT 18 U/L (<34); BILIRUBIN,TOTAL 0.6 MG/DL (0.3-1.2); BLOOD UREA NITROGEN 22 MG/DL (9-23); CALCIUM LEVEL 9.1 MG/DL (8.5-10.1); CARBON DIOXIDE LEVEL 23 MMOL/L (20-31); CHLORIDE LEVEL 103 MMOL/L (98-107); CHOLESTEROL LEVEL 196 MG/DL (<200); CHOLESTEROL RISK RATIO 3.38 (<5); CREATININE FOR GFR 0.92 MG/DL (0.55-1.30); GLOMERULAR FILTRATION RATE > 60.0 (>58); GLUCOSE, FASTING 72 MG/DL (60-100); HDL CHOLESTEROL 57.9 MG/DL (>40); LDL CHOLESTEROL 97.7 MG/DL (<100); NON-HDL-C 138.1 MG/DL; POTASSIUM SERUM 3.7 MMOL/L (3.5-5.1); SODIUM LEVEL 138 MMOL/L (136-145); TOTAL PROTEIN 7.6 G/DL (5.7-8.2); TRIGLYCERIDES LEVEL 202 MG/DL (<150)
== END ==
LOC: M WUC 13:37
PROVIDERS: ATTEND Physician Assistant
DX: I10 Essential (primary) hypertension (principal); E78.5 Hyperlipidemia, unspecified; K50.013 Crohn's disease of small intestine with fistula; R05.1 Acute cough; R06.02 Shortness of breath

== ENCOUNTER → 2023-09-16 | Outpatient (CLI) | payer BC | LOC: M WHC 09:56 | PROVIDERS: ATTEND Obstetrics & Gynecology | DX: Z12.31 Encounter for screening mammogram for malignant neoplasm of breast (principal) ==

== ENCOUNTER → 2023-09-16 | Outpatient (REF) | payer BC | LOC: M SFHCWAGY 13:12 | PROVIDERS: ATTEND Obstetrics & Gynecology | DX: Z12.4 Encounter for screening for malignant neoplasm of cervix (principal) ==

== ENCOUNTER → 2023-09-22 | Outpatient (CLI) | payer BC | LOC: M PLAIMG 10:28 | PROVIDERS: ATTEND Physician Assistant | DX: R05.3 Chronic cough (principal); R91.1 Solitary pulmonary nodule; I25.10 Atherosclerotic heart disease of native coronary artery without angina pectoris; K44.9 Diaphragmatic hernia without obstruction or gangrene; Z98.84 Bariatric surgery status ==

== ENCOUNTER → 2023-09-30 | Outpatient (CLI) | payer BC ==
[2023-09-30 12:17] LABS: BASO % 0.5 % (0.0-1.0); EOS # 0.2 10^3/uL (0.0-0.5); EOS % 3.8 % (0.0-3.0); HEMOGLOBIN 13.6 g/dl (12.0-15.5); LYMPH # 1.4 10^3/uL (1.5-5.0); LYMPH % 22.9 % (24.0-44.0); MEAN CORPUSCULAR HEMOGLOBIN 30.4 pg (27.0-33.0); MEAN CORPUSCULAR VOLUME 89.3 fl (80.0-96.0); MONO # 0.8 10^3/uL (0.0-0.8); MONO % 12.3 % (2.0-8.0); NEUTROPHILS # 3.7 10^3/uL (1.5-8.5); PLATELET COUNT, AUTOMATED 246 10^3/uL (150-450); RED BLOOD COUNT 4.48 10^6/uL (4.00-5.40)
[2023-09-30 12:38] LABS: ERYTHROCYTE SEDIMENTATION RATE 31 mm/hr (0-20)
[2023-10-03 10:57] LABS: WHITE BLOOD COUNT 6.2 10^3/uL (4.0-10.0)
== END ==
LOC: M LAB 11:42 → M PLALAB 11:42
PROVIDERS: ATTEND Physician Assistant
DX: R05.3 Chronic cough (principal); R22.32 Localized swelling, mass and lump, left upper limb

== ENCOUNTER 2023-10-12 22:00 | Emergency (ER) | payer BC ==
[~2023-10-12] VITALS: Ht 165.1 cm; Wt 108.9 kg
[2023-10-13] MEDS: PANTOPRAZOLE 40MG TAB (PROTONIX) PO ONE (02:19)
[2023-10-13] MEDS: predniSONE 20 MG TAB PO ONE (02:19)
[2023-10-13] MEDS ORDERED: PRED10TA2 PO (02:30)
[2023-10-13 02:39] VITALS: BP 145/87; TEMP 96.9; O2SAT 100
== END 2023-10-13 02:41 | disposition home or self-care (01) ==
LOC: M ED 22:00
DX: B34.8 Other viral infections of unspecified site (principal); J44.1 Chronic obstructive pulmonary disease with (acute) exacerbation; I10 Essential (primary) hypertension; K50.90 Crohn's disease, unspecified, without complications; Z88.8 Allergy status to other drugs, medicaments and biological substances; Z79.811 Long term (current) use of aromatase inhibitors; Z79.52 Long term (current) use of systemic steroids; Z79.899 Other long term (current) drug therapy; Z79.02 Long term (current) use of antithrombotics/antiplatelets
CPT/HCPCS: 71046; 87486; 87581; 87633; 87798; 99283; J7512

== ENCOUNTER 2024-02-06 08:35 | Day surgery (SDC) | payer BC ==
[~2024-02-06] VITALS: Ht 165.1 cm; Wt 111.2 kg
[~2024-02-06 08:35] MED LIST changes: +BISO1TAB18 PO; +BREO1INH3 INH; +FURO40TA2 PO; +POTA1TAB23 PO; +PRED10TA2 PO; -ROSU10TA6 PO; +ROSU10TA61 PO
[2024-02-06] MEDS: NS 1,000 ML IV ONE (08:47)
[2024-02-06] MEDS ORDERED: fentaNYL 100 MCG/2 ML INJECTION As Ordered ONE (09:28)
[2024-02-06] MEDS ORDERED: ONDANSETRON 4MG 2ML VIAL As Ordered ONE (09:28)
[2024-02-06] MEDS ORDERED: propofoL 200 MG/20 ML VIAL As Ordered ONE (09:28)
[2024-02-06] MEDS ORDERED: LIDOCAINE 2% 100MG/5ML SDV (FOR ANES.) As Ordered ONE (09:28)
[2024-02-06 10:32] VITALS: TEMP 97.7
[2024-02-06 10:47] VITALS: BP 118/59; O2SAT 98
== END 2024-02-06 10:59 | disposition home or self-care (01) ==
LOC: M OPP 08:35
PROVIDERS: ATTEND Internal Medicine Gastroenterology
DX: K20.90 Esophagitis, unspecified without bleeding (principal); R05.3 Chronic cough; Z98.84 Bariatric surgery status; R12 Heartburn; E03.9 Hypothyroidism, unspecified; I10 Essential (primary) hypertension; E78.00 Pure hypercholesterolemia, unspecified; Z79.02 Long term (current) use of antithrombotics/antiplatelets; Z79.51 Long term (current) use of inhaled steroids; Z79.890 Hormone replacement therapy; Z79.899 Other long term (current) drug therapy; Z88.8 Allergy status to other drugs, medicaments and biological substances; Z90.89 Acquired absence of other organs
CPT/HCPCS: 43239; 88305; J2405; J3010

== ENCOUNTER → 2024-02-28 | Outpatient (CLI) | payer BC ==
[~2024-02-28] MED LIST changes: +E-Z-GAS II EFFERVESCENT PACKET (SODIUM BICARB./CITRIC ACID/SIMETHICONE) As Ordered ONE; +E-Z-HD 98% w/w 340GM SUSP BTL As Ordered ONE; +E-Z-PAQUE 96% w/w SUSP 176GM BTL As Ordered ONE
== END ==
LOC: M RAD 08:47
PROVIDERS: ATTEND Internal Medicine Gastroenterology
DX: R05.3 Chronic cough (principal); Z98.84 Bariatric surgery status; K50.913 Crohn's disease, unspecified, with fistula; K44.9 Diaphragmatic hernia without obstruction or gangrene; Z97.5 Presence of (intrauterine) contraceptive device; Z98.0 Intestinal bypass and anastomosis status; Z90.49 Acquired absence of other specified parts of digestive tract

== ENCOUNTER → 2024-03-22 | Outpatient (REF) | payer BC ==
[~2024-03-22] MED LIST changes: -E-Z-GAS II EFFERVESCENT PACKET (SODIUM BICARB./CITRIC ACID/SIMETHICONE) As Ordered ONE; -E-Z-HD 98% w/w 340GM SUSP BTL As Ordered ONE; -E-Z-PAQUE 96% w/w SUSP 176GM BTL As Ordered ONE
== END ==
LOC: M LAB REF 12:51
PROVIDERS: ATTEND Internal Medicine
DX: K50.90 Crohn's disease, unspecified, without complications (principal)

== ENCOUNTER → 2024-10-18 | Outpatient (REF) | payer BC ==
[2024-10-18 12:38] LABS: INR 0.99; PROTHROMBIN TIME 13.4 SECONDS (12.5-14.5)
[2024-10-18 15:44] LABS: FERRITIN 20.9 NG/ML (7.3-270.7)
[2024-10-18 15:51] LABS: IRON (FE) 90 UG/DL (50-170); PERCENT SATURATION 25.4 % (13.2-45.0); TOTAL IRON BINDING CAPACITY 354 UG/DL (250-425)
[2024-10-18 15:57] LABS: HEPATITIS B SURFACE ANTIGEN NEGATIVE (NEGATIVE)
[2024-10-18 16:18] LABS: HEPATITIS B CORE ANTIBODY IGM NEGATIVE (NEGATIVE); HEPATITIS C VIRUS ABY INDEX 0.04 INDEX (<0.8)
== END ==
LOC: M LAB REF 12:08
PROVIDERS: ATTEND Internal Medicine
DX: K75.81 Nonalcoholic steatohepatitis (NASH) (principal); K74.02 Hepatic fibrosis, advanced fibrosis

== ENCOUNTER → 2024-10-31 | Outpatient (CLI) | payer BC | LOC: M RAD 08:58 | PROVIDERS: ATTEND Internal Medicine | DX: K74.02 Hepatic fibrosis, advanced fibrosis (principal); K76.0 Fatty (change of) liver, not elsewhere classified; R16.0 Hepatomegaly, not elsewhere classified ==

== ENCOUNTER → 2025-01-08 | Outpatient (CLI) | payer OTHER ==
[~2025-01-08] VITALS: Ht 165.1 cm; Wt 115.9 kg
[~2025-01-08] MED LIST changes: +ALBUTEROL SULFATE 2.5 MG/0.5 ML INH CONCENTRATE NEB SOLN INH PRN; +AMLO1TAB24; +EPINEPHrine INJ 1 MG/ML 1ML AMP IM PRN; +OMEP40CA5; +ROSU20TA86; +diphenhydrAMINE 50 MG/ML VIAL IV PRN
[2025-01-08 15:55] VITALS: BP 140/74; O2SAT 100
[2025-01-08] MEDS: FERRIC CARBOXYMALTOSE 750 MG (VIAL MATE) IN 100ML NS IV ONE (16:01)
[2025-01-08 16:40] VITALS: BP 132/75; O2SAT 100
== END ==
LOC: M INFU 15:26
PROVIDERS: ATTEND Internal Medicine
DX: D50.9 Iron deficiency anemia, unspecified (principal); Z88.8 Allergy status to other drugs, medicaments and biological substances
CPT/HCPCS: 96365; J1439

== ENCOUNTER → 2025-02-18 | Outpatient (REF) | payer OTHER ==
[~2025-02-18] MED LIST changes: -ALBUTEROL SULFATE 2.5 MG/0.5 ML INH CONCENTRATE NEB SOLN INH PRN; -EPINEPHrine INJ 1 MG/ML 1ML AMP IM PRN; -diphenhydrAMINE 50 MG/ML VIAL IV PRN
[2025-02-18 18:54] LABS: IRON (FE) 114.0 UG/DL (50-170); PERCENT SATURATION 42.7 % (13.2-45.0)
== END ==
LOC: M LAB REF 17:43
PROVIDERS: ATTEND Internal Medicine
DX: E61.1 Iron deficiency (principal)

== ENCOUNTER → 2025-06-25 | Outpatient (CLI) | payer OTHER ==
[~2025-06-25] MED LIST changes: -ROSU10TA61 PO; +ROSU10TA90 PO
== END ==
LOC: M RAD 11:13
PROVIDERS: ATTEND Radiology Diagnostic Radiology
DX: I83.813 Varicose veins of bilateral lower extremities with pain (principal); I87.2 Venous insufficiency (chronic) (peripheral)